=== PATIENT | female | born 1960 | race Caucasian/White ===

== ENCOUNTER 2019-07-23 16:22 | Emergency (ER) | payer OTHER, SELFPAY ==
[2019-07-23 16:22] VITALS: BP 153/107; PULSE 88; RESP 19; TEMP 37.1; O2SAT 96; BMI 26.6
--- NOTE | 2019-07-23 16:39 | HMH.EDUTC ---
[facility] [place] Clinical Impression: Folliculitis Disposition: Home, Self-Care Condition on Discharge: Good Instructions: Folliculitis, DI for Folliculitis Additional Instructions: Keep the area clean and dry. Follow up with your regular doctor. Take the antibiotics as directed. Don't start the oral steroids until tomorrow, since you had the shot here today. GO TO THE ER FOR ANY WORSENING SYMPTOMS Prescriptions: Sulfamethoxazole/Trimethoprim [Bactrim DS tablet] 1 each PO BID 10 Days #20 tab Transmission Status: Received by [facility]/pharmacy #[id number] Mupirocin [Bactroban 2% Ointment 22gm tube] 1 applicatio TP TID 7 Days #1 tube Transmission Status: Received by [facility]/pharmacy #[id number] cephALEXin [Keflex 500mg Cap] 500 mg PO Q6H 10 Days #40 cap Transmission Status: Received by [facility]/pharmacy #[id number] methylPREDNISolone [Medrol] 4 mg PO DIRECTED 6 Days #21 tab.ds.pk Transmission Status: Received by [facility]/pharmacy #[id number] Referrals: Provider,Referral, [Primary Care Provider] - Time of Disposition: 16:42 Medical Decision Making - Medical Records Medical records reviewed: No: I reviewed the patient's medical records. - Elmo Inquiry Pt receiving controlled substance: No Vital Signs: 07/23/19 16:22 07/23/19 16:50 Temperature 98.7 F 98.7 F Temperature Source Oral Oral Pulse Rate 88 Pulse Rate [Radial] 88 Respiratory Rate 19 19 Blood Pressure 148/98 H Blood Pressure [Right Arm] 153/107 H Blood Pressure Mean [Right Arm] 122 Blood Pressure Source Automatic Cuff Blood Pressure Source [Right Arm] Automatic Cuff Blood Pressure Position Sitting Blood Pressure Position [Right Arm] Sitting 02 Sat by Pulse Oximetry 96 Oxygen Delivery Method Room Air Room Air Orders (Tests/Meds): ED MEDICATIONS Discontinued Medications Generic Name Dose Route Start Last Admin Trade Name Freq PRN Reason Stop Dose Admin Ceftriaxone Sodium 1 gm 07/23/19 16:39 07/23/19 16:43 Rocephin 1gm Vial IM 07/23/19 16:40 1 gm ONCE ONE Administration Protocol Lidocaine HCl 0 ml 07/23/19 16:39 07/23/19 16:43 Lidocaine 1% 10ml Mdv IM 07/23/19 16:40 2.1 ml ONCE ONE Administration Methylprednisolone Sodium Succinate 125 mg 07/23/19 16:39 07/23/19 16:43 Solu-Medrol 125mg/2ml Vial IM 07/23/19 16:40 125 mg ONCE ONE Administration [facility] [place] - General Stated complaint: possible staph infection Time Seen by Provider: 07/23/19 16:39 Mode of Arrival: Ambulatory Source of Information: Patient Limitations: No Limitations Description of Symptoms (Recalled from Triage Doc. by RN): possible staph infection on belly and top of legs. HEENT Symptoms (Recalled from RN notes): No Resp Symptoms (Recalled from RN notes): No Skin Symptoms (Recalled from RN notes): Yes MS Symptoms (Recalled from RN notes): No Functional Status (Recalled from RN notes): wnl - History of Present Illness Provider Complaint: She c/o itching and redness of her abdomen and upper legs. In the past she had similar symptoms and she was treated for a staph infection and it got better. She denies any fever or chills. - Related Data Previous Rx's Medication Instructions Recorded Mupirocin [Bactroban 2% Ointment 1 applicatio TP TID 7 Days #1 tube 07/23/19 22gm tube] Sulfamethoxazole/Trimethoprim 1 each PO BID 10 Days #20 tab 07/23/19 [Bactrim DS tablet] cephALEXin [Keflex 500mg Cap] 500 mg PO Q6H 10 Days #40 cap 07/23/19 methylPREDNISolone [Medrol] 4 mg PO DIRECTED 6 Days #21 07/23/19 tab.ds.pk Allergies Allergy/AdvReac Type Severity Reaction Status Date / Time No Known Allergies Allergy Verified 05/25/18 16:08 - Worker's Comp Is this a Worker's Comp case?: No [facility] History - Hepatitis A Screen Drug use history?: No High risk sexual behaviors?: No History of sexually transmitted infection?: No Currently employed?: No Childcare worker?: No Do you have indoor plumbing?: Yes Do
[2019-07-23 16:50] VITALS: BP 148/98; PULSE 88; RESP 19; TEMP 37.1; O2SAT 96
== END 2019-07-23 16:51 | disposition home or self-care (01) ==
PROVIDERS: Emergency Provider Nurse Practitioner Family
DX: L73.9 Follicular disorder, unspecified (principal); F17.210 Nicotine dependence, cigarettes, uncomplicated
CPT/HCPCS: 96372; 99201

== ENCOUNTER 2019-08-11 13:02 | Emergency (ER) | payer OTHER, SELFPAY ==
[2019-08-11 13:19] VITALS: BP 150/101; PULSE 67; RESP 21; TEMP 36.1; O2SAT 99; BMI 26.8
--- NOTE | 2019-08-11 13:31 | HMH.EDUTC ---
[facility] – [place] Clinical Impression: Vomiting Qualifiers: Vomiting type: unspecified Vomiting Intractability: non-intractable Nausea presence: with nausea Qualified Code(s): R11.2 - Nausea with vomiting, unspecified Diarrhea Qualifiers: Diarrhea type: unspecified type Qualified Code(s): R19.7 - Diarrhea, unspecified Disposition: Home, Self-Care Condition on Discharge: Good Instructions: Peptic Ulcer, DI for Peptic Ulcer Additional Instructions: Drink plenty of fluids. Take tylenol for pain or fever. Take the zofran for nausea/vomiting. Take the medications as directed. Follow up with your regular doctor. GO TO THE ER FOR ANY WORSENING SYMPTOMS Follow up with the GI doctor (Dr. Lepe). I put in a referral, but you need to call his office and schedule an appointment. Avoid taking the goody powders, BC powders or other NSAIDS until you are seen by Dr. Lepe. Prescriptions: Ondansetron [Zofran 4mg ODT] 4 mg PO Q8HP PRN #20 tab.rapdis PRN Reason: Nausea Transmission Status: Received by [facility]/pharmacy #[id number] Omeprazole [Omeprazole 20mg Capsule] 20 mg PO DAILY 30 Days #30 cap Transmission Status: Received by [facility]/pharmacy #[id number] Referrals: Carmen Mandel PA [Primary Care Provider] - Shant Lepe MD [Staff Physician] - Forms: Work/School Release Time of Disposition: 15:05 Medical Decision Making - Medical Records Medical records reviewed: Yes: I reviewed the patient's medical records. - Elmo Inquiry Pt receiving controlled substance: No Vital Signs: 08/11/19 13:19 08/11/19 15:07 Temperature 97 F L 97.0 F L Temperature Source Oral Pulse Rate 67 Pulse Rate [Right Brachial] 67 Respiratory Rate 21 21 Blood Pressure 150/85 H Blood Pressure [Left Arm] 150/101 H Blood Pressure Mean [Left Arm] 117 Blood Pressure Source [Left Arm] Automatic Cuff Blood Pressure Position [Left Arm] Sitting 02 Sat by Pulse Oximetry 99 Oxygen Delivery Method Room Air - Lab Data Lab results reviewed: Yes: I reviewed the patient's lab results. Lab Results 08/11/19 13:50: WBC 6.9, RBC 4.86, Hgb 15.8, Hct 47.7 H, MCV 98.1, MCH 32.5 H, MCHC 33.1, RDW 12.9, Plt Count 260, MPV 8.3, Neut % (Auto) 63.2, Lymph % (Auto) 31.3, [place] % (Auto) 3.8, Eos % (Auto) 1.1, Baso % (Auto) 0.6, Neut # (Auto) 4.4, Lymph # (Auto) 2.2, [place] # (Auto) 0.3, Eos # (Auto) 0.1, Baso # (Auto) 0.0 08/11/19 13:50: PT 10.0, INR 0.97, APTT 22.5 L 08/11/19 13:50: Sodium 140, Potassium 4.1, Chloride 105, Carbon Dioxide 31 H, Anion Gap 8.1, BUN 10, Creatinine 0.60, Estimated Creat Clear 121, Estimated GFR 103, Est GFR ( Amer) 124, Glucose 105 H, Calcium 9.4, Total Bilirubin 0.8, AST 28, ALT 15, Alkaline Phosphatase 80, Total Protein 7.0, Albumin 4.3, Globulin 2.7, Albumin/Globulin Ratio 1.6, Amylase 76, Lipase 51 Result diagrams: 08/11/19 13:50 08/11/19 13:50 [facility] [place] - General Stated complaint: vomiting,diarrhea Time Seen by Provider: 08/11/19 13:32 Mode of Arrival: Ambulatory Source of Information: Patient Limitations: No Limitations Description of Symptoms (Recalled from Triage Doc. by RN): PATIENT C/O VOMITING, DIARRHEA, AND CHILLS SINCE SUNDAY AFTERNOON. NO KNOWN SICK CONTACTS HEENT Symptoms (Recalled from RN notes): No Resp Symptoms (Recalled from RN notes): No Skin Symptoms (Recalled from RN notes): No MS Symptoms (Recalled from RN notes): No Functional Status (Recalled from RN notes): WNL - History of Present Illness Provider Complaint: She c/o n/v/d for the past 2 days. She states that her stool has been maroon colored at times. She has a history of having an ulcer that has bled in the past. - Related Data Previous Rx's Medication Instructions Recorded Omeprazole [Omeprazole 20mg 20 mg PO DAILY 30 Days #30 cap 06/29/20 Capsule] Ondansetron [Zofran 4mg ODT] 4 mg PO Q8HP PRN #20 tab.rapdis 08/11/19 Allergies Allergy/AdvReac Type Severity Reaction Status Scot
[2019-08-11 14:15] LABS: Chloride 105 mmol/L (98-107); Potassium 4.1 mmoL/L (3.5-5.1); Sodium 140 mmol/L (136-145)
[2019-08-11 14:17] LABS: Alanine Aminotransferase 15 U/L (12-78); Amylase 76 U/L (30-110); Aspartate Amino Transferase 28 U/L (14-36); Blood Urea Nitrogen 10 mg/dl (7-17); Creatinine Clearance Estimated 121 mL/min (50-200); Estimated Glomerular Filt Rate 103 ml/min (>60); GFR (African American) 124 ML/MIN (>60)
[2019-08-11 14:18] LABS: Albumin Level 4.3 g/dl (3.5-5.0); Albumin/Globulin Ratio 1.6 (1.1-1.8); Alkaline Phosphatase 80 U/L (38-126); Anion Gap 8.1 mEq/L (5-15); Bilirubin,Total 0.8 mg/dl (0.2-1.3); Calcium 9.4 mg/dl (8.4-10.2); Carbon Dioxide 31 mmol/L (22.0-30.0); Globulin 2.7 g/dL (1.3-3.2); Glucose 105 mg/dl (74-100); Lipase 51 U/L (23-300)
[2019-08-11 14:55] LABS: Basophils % 0.6 % (0.1-2.0); Eosinophils # 0.1 K/mm3 (0.0-0.4); Eosinophils % 1.1 % (0.1-12.0); Hematocrit 47.7 % (37.0-47.0); Hemoglobin 15.8 g/dL (12.2-16.2); Lymphocytes # 2.2 K/mm3 (0.7-4.5); Lymphocytes % 31.3 % (10-50); Mean Corpuscular HGB Conc 33.1 g/dL (31.8-35.4); Mean Corpuscular Hemoglobin 32.5 pg (27.0-31.2); Mean Corpuscular Volume 98.1 fl (81-99); Mean Platelet Volume 8.3 fl (7.4-10.4); Monocytes # 0.3 K/mm3 (0.1-1.0); Monocytes % 3.8 % (1.7-9.3); Neutrophils # 4.4 K/mm3 (1.8-7.8); Neutrophils % 63.2 % (37.0-80.0); Platelet Count 260 K/mm3 (142-424); Red Blood Count 4.86 M/mm3 (4.20-5.40); Red Cell Distribution Width 12.9 % (11.5-17.5); White Blood Count 6.9 K/mm3 (4.8-10.8)
[2019-08-11 15:00] LABS: Activated Partial Thrombo Time 22.5 seconds (23.6-34.0); INR 0.97 (0.9-1.1)
[2019-08-11 15:07] VITALS: BP 150/85; PULSE 67; RESP 21; TEMP 36.1; O2SAT 99
== END 2019-08-11 15:16 | disposition home or self-care (01) ==
PROVIDERS: Emergency Provider Nurse Practitioner Family; PCP Physician Assistant
DX: R11.2 Nausea with vomiting, unspecified (principal); R19.7 Diarrhea, unspecified; F17.210 Nicotine dependence, cigarettes, uncomplicated; Z90.09 Acquired absence of other part of head and neck
CPT/HCPCS: 80053; 82150; 83690; 85025; 85610; 85730; 99201

== ENCOUNTER → 2019-09-16 09:09 | Outpatient (CLI) | payer OTHER, SELFPAY ==
--- NOTE | 2019-09-16 09:10 | MM_ITS ---
PROCEDURE: MM DIG SCREENING MAMM BI W/CAD Digital Breast Tomosynthesis Included CLINICAL INDICATION: screening There is a history of breast cancer patient's mother. Patient has had previous mammograms but is not sure where they were performed COMPARISON: No exams were available for comparison TECHNIQUE: Standard CC and MLO images and 3D Tomosynthesis was obtained. R2 CAD reviewed. FINDINGS: The breasts are composed primarily of fat with minimal scattered fibroglandular densities in each breast. There is a tiny benign-appearing nodular density upper-outer quadrant right breast likely a microcyst. There is a benign-appearing microcalcification left breast. There is no suspicious lesion and no suspicious microcalcifications. IMPRESSION: Fatty type breast parenchyma with no suspicious lesions seen BI-RAD Category: 2 Benign Finding(s) FOLLOW-UP: 1YR 1 Year Follow-up (A letter has been sent to the patient regarding results of the study.) Dictated Dr. Chapito Valdivia MD 09/19/2019 11:56 Dr. Chapito Fermin MD in [place] 09/19/2019 11:56
--- NOTE | 2019-09-16 09:10 | XR_ITS ---
PROCEDURE: XR LUMBAR SPINE MIN 4V CLINICAL INDICATION: LBP COMPARISON: No exams were available for comparison FINDINGS: Mild levoscoliosis. There are facet arthritic changes at L5-S1. There is mild degenerative disc disease at T12-L1 and L1-L2 as well as L2-L3. Degenerative disc disease is present at L5-S1 with nearly 1 cm anterolisthesis of L5 on S1. Other findings:None. IMPRESSION: Lumbar spondylosis with degenerative disc disease and facet arthritic change. Grade 1-2 spondylolisthesis L5 on S1. Dictated b Edd Nagel MD 09/16/2019 15:19 Edd Nagel MD in [place] 09/16/2019 15:19
== END ==
PROVIDERS: PCP Physician Assistant; Visit Provider Physician Assistant
DX: Z12.31 Encounter for screening mammogram for malignant neoplasm of breast (principal); Z12.11 Encounter for screening for malignant neoplasm of colon; M54.5 Low back pain
CPT/HCPCS: 72110; 77063; 77067

== ENCOUNTER → 2019-10-02 07:43 | Outpatient (CLI) | payer OTHER, SELFPAY ==
--- NOTE | 2019-10-02 07:43 | MR_ITS ---
PROCEDURE: MR LUMBAR SPINE WO CON CLINICAL INDICATION: abn xray Severe low back pain, bilateral sciatica x25-30 years. Prior xray 09-16-19 COMPARISON: CR XR LUMBAR SPINE MIN 4V from 09/16/2019 TECHNIQUE: Standard multiplanar multiecho sequences are performed without contrast. 3-D MIP and myelographic images are also rendered and reviewed FINDINGS: The spinal cord ends at the T12 level. There is mild degree of motion artifact on the images which somewhat obscures fine detail. T11-T12: There is a small right paracentral disc herniation causing minimal impingement and flattening of the anterior right aspect of the spinal cord. There is degenerative disc disease at this level. T12-L1: Degenerative disc disease with bulging disc slightly eccentric toward the right versus a small broad-based disc protrusion with facet and ligamentum hypertrophy. There is mild right lateral recess and foraminal narrowing. There is 4 mm retrolisthesis of T12 on L1 L1-L2: Degenerate disc disease with bulging disc along with facet ligamentum hypertrophy. There is a small left paracentral disc protrusion. There is mild bilateral lateral recess and foraminal narrowing with facet and ligamentum hypertrophy. L2-L3: Mild degenerative disc disease with bulging disc with facet and ligamentum hypertrophy with mild bilateral foraminal narrowing. L3-L4: There is bulging disc which is eccentric toward the left along with facet ligamentum hypertrophy. There is bilateral lateral recess and foraminal narrowing which is slightly greater on the left L4-5: Mild concentric bulging disc along with facet and ligamentum hypertrophy with mild bilateral foraminal narrowing L5-S1: 13 mm anterolisthesis of L5 with degenerative disc disease at that level. The spondylolisthesis appears to be spondylitic in nature. There is resultant severe bilateral foraminal narrowing from the spondylolisthesis. No extruded herniated disc are evident. There is mild lumbar scoliosis convex left . IMPRESSION: Abnormal MRI of the lumbar spine with multilevel lumbar spondylosis with degenerative disc disease, bulging disc, facet ligamentum hypertrophy with multilevel areas of lateral recess and foraminal narrowing. There is a right paracentral disc herniation at T11-T12 and there is grade 2 spondylolisthesis of L5 on S1 which appears spondylitic. Please see above for detailed description at each level. Dictated by: Edd Nagel MD 10/03/2019 12:55 Edd Nagel MD in [place] 10/03/2019 12:55
== END ==
PROVIDERS: PCP Physician Assistant; Visit Provider Physician Assistant
DX: M51.36 Other intervertebral disc degeneration, lumbar region (principal)
CPT/HCPCS: 72148; 76376

== ENCOUNTER → 2019-11-25 09:43 | Outpatient (CLI) | payer OTHER, SELFPAY ==
[2019-11-25 12:25] LABS: Coronavirus 19 IgG Antibody Positive (Negative); Coronavirus 19 IgM Antibody Negative (Negative)
== END ==
PROVIDERS: Visit Provider Surgery
DX: Z01.84 Encounter for antibody response examination (principal); U07.1 COVID-19
CPT/HCPCS: 36415; 86328

== ENCOUNTER 2019-11-27 06:13 | Day surgery (SDC) | payer OTHER, SELFPAY ==
[2019-11-25 13:08] VITALS: BMI 25.8
[2019-11-27 06:37] VITALS: BP 102/69; PULSE 78; RESP 18; TEMP 36.3; O2SAT 97
--- NOTE | 2019-11-27 07:33 | HMH.ANESCL ---
[facility] Anesthesia Checklist - Patient Identification Patient Identification: Arm Band, Verbal (Name & ) - Structural Data Admitted From: Home Planned Operative Procedure/s: colon Consent for Planned Operative Procedure(s) Verified: Yes Verified Documents: History and Physical - NPO Status Verified Time NPO: 00:00 - Chart Verification Results Verified: CBC, BMP - Additional verifications Patient : No Anesthesia Reactions: No Hx Blood Transfusions: No Blood Transfusion Reaction: No Cephalosporin Allergy: No Previous Colonoscopy: Yes - Cardiovascular Assessment Heart Sounds: S1 & S2 Pulse Strength: Baseline Pulse Rhythm: Regular Peripheral Edema: No - Airway Assessment C-Spine Mobility Assessed: Yes TMJ Mobility Assessed: Yes Dentition: Good Dentition - Neurological Assessment Level of Consciousness: Awake, Alert, Appropriate Hx Seizures: No Numbness or tingling in extremities: No - Anesthesia Plan Anesthesia Risk discussed: Yes Anesthesia Plan: Verified ASA Class: III Anesthesia Type: MAC [facility] History I have reviewed the patient's past medical history: Yes Medical History: Reports:: Cancer (cervical), Congestive Heart Failure, Gastroesophageal Reflux Disease(GERD), Hyperlipidemia Denies:: Diabetes Mellitus Type 1, Diabetes Mellitus Type 2, Internal Pacemaker, MRSA, Seizures *Have you ever received a pneumonia vaccine?: No *Have you received a flu vaccine this season?: No Anesthesia experience/problems:: none Laterality Cases: Bilateral: Tonsillectomy Other Surgeries: Yes: Coronary Stent (2016), , Hysterectomy-Total, Other. No: Pacemaker Amputation: No Fractures: No - *Social History Last grade of school completed: 9th or 10th Smoking Status: Current every day smoker Tobacco Type: cigarettes # Packs/Day (cigarettes): 1 Alcohol Intake: current Alcohol Intake Frequency:: holidays/special occasions only Substance Use Type: denies use *Occupational Status:: employed Housing: house Household Members: significant other *Travel in the last 8 weeks: None Family Hx:: Cancer, Heart Attack
[2019-11-27 07:39] VITALS: O2SAT 97
--- NOTE | 2019-11-27 08:21 | P.PCN_ITS ---
- Procedure: Date: 11/27/19 Patient Date of :: 1960 Procedure Performed:: Colonoscopy with polypectomy Indications:: Screening Performing Provider:: Chip Sow MD Referring Provider:: . Sedation:: Monitored anesthesia care Procedure:: After informed consent was obtained the patient was taken to the endoscopy suite. Sedation ensued after the patient was transferred to the left lateral decubitus position. Pulse, blood pressure, and oxygen saturation were monitored throughout the procedure. Digital rectal exam revealed no significant ab normality. The colonoscope was placed in position. The entire colon was evaluated. The colonoscope was carefully removed and the patient was transferred to recovery in stable condition. Please see findings and specimens below for detail. Findings:: Bowel preparation moderate to poor Pandiverticulosis Fairly significant spasticity/lack of relaxation Hemorrhoidal cushions Complex lobulated pedunculated polyp at 20 cm Specimens:: Complex lobulated pedunculated polyp at 20 cm (snare) Recommendations:: Timing of repeat colonoscopy is pending pathology but will likely be around 1 year secondary to limited bowel preparation, spasticity/lack of relaxation, and size/nature of polyp. Complications:: No immediate Estimated blood obtained (mL): 1
[2019-11-27 08:24] VITALS: BP 103/92; PULSE 72; RESP 16; TEMP 36.4; O2SAT 98
[2019-11-27 08:34] VITALS: BP 111/83; PULSE 78; RESP 16; O2SAT 98
[2019-11-27 08:44] VITALS: BP 130/87; PULSE 76; RESP 16; O2SAT 98
[2019-11-27 08:54] VITALS: BP 123/82; PULSE 68; RESP 16; O2SAT 99
== END 2019-11-27 08:54 | disposition home or self-care (01) ==
LOC: OUTP 06:15
PROVIDERS: PCP Physician Assistant; Visit Provider Surgery
PROC: 0DJD8ZZ Inspection of Lower Intestinal Tract, Via Natural or Artificial Opening Endoscopic (ICD-10-PCS; CPT 45385; principal; 2019-11-27 07:30)
DX: Z12.11 Encounter for screening for malignant neoplasm of colon (principal); K57.30 Diverticulosis of large intestine without perforation or abscess without bleeding; K64.0 First degree hemorrhoids; K63.5 Polyp of colon; K56.2 Volvulus; Z85.41 Personal history of malignant neoplasm of cervix uteri; I50.9 Heart failure, unspecified; K21.9 Gastro-esophageal reflux disease without esophagitis; E78.5 Hyperlipidemia, unspecified; Z90.89 Acquired absence of other organs; Z79.899 Other long term (current) drug therapy
CPT/HCPCS: 45385

== ENCOUNTER → 2020-07-26 14:16 | Outpatient (CLI) | payer BC, SELFPAY ==
[2020-07-26 15:10] LABS: Barbiturates Screen,Urine Negative ng/ml (<200)
[2020-07-26 15:11] LABS: Benzodiazepines Screen,Urine Negative ng/ml (<200)
[2020-07-26 15:12] LABS: Amphetamine/Metha Screen,Urine Negative ng/ml (<1000); Methadone Screen,Urine Negative ng/ml (<300)
[2020-07-26 15:13] LABS: Cannabinoid Screen,Urine Positive ng/ml (<50)
[2020-07-26 15:14] LABS: Cocaine Screen,Urine Negative ng/ml (<300); Opiate Screen,Urine Negative ng/ml (<300)
[2020-07-26 15:15] LABS: Phencyclidine Screen,Urine Negative ng/ml (<25)
== END ==
PROVIDERS: Visit Provider Physician Assistant
DX: Z79.899 Other long term (current) drug therapy (principal)
CPT/HCPCS: 80305

== ENCOUNTER → 2020-11-18 15:58 | Outpatient (CLI) | payer BC, SELFPAY ==
--- NOTE | 2020-11-18 15:58 | MM_ITS ---
PROCEDURE: MM DIG SCREENING MAMM BI W/CAD Digital Breast Tomosynthesis Included CLINICAL INDICATION: Breast cancer screening There is a history of breast cancer in the patient's mother and paternal grandmother. COMPARISON: MG MM DIG SCREENING MAMM BI W/CAD from 09/16/2019 TECHNIQUE: Standard CC and MLO images and 3D Tomosynthesis was obtained. R2 CAD reviewed. FINDINGS: Breasts are composed primarily of fat with minimal scattered fibroglandular densities throughout each breast. There is a mole marker right breast. There is faint arterial calcification in each breast. There is no suspicious lesion and no suspicious microcalcifications. IMPRESSION: Fatty type breast parenchyma with no suspicious lesions seen BI-RAD Category: 2 Benign Finding(s) FOLLOW-UP: 1YR 1 Year Follow-up (A letter has been sent to the patient regarding results of the study.) Dictated by: Dr. Chapito Fermin MD 12/10/2020 08:13 Dr. Chapito Fermin MD in [place] 12/10/2020 08:13
== END ==
PROVIDERS: PCP Physician Assistant; Visit Provider Physician Assistant
DX: Z12.31 Encounter for screening mammogram for malignant neoplasm of breast (principal)
CPT/HCPCS: 77063; 77067

== ENCOUNTER 2020-11-24 12:34 | Emergency (ER) | payer BC, SELFPAY ==
[2020-11-24 12:40] VITALS: BP 134/110; PULSE 79; RESP 16; TEMP 36.6; O2SAT 99; BMI 25.8
[2020-11-24 12:50] VITALS: BP 134/110; PULSE 79; RESP 19; TEMP 36.5
--- NOTE | 2020-11-24 13:13 | HMH.EDUTC ---
[facility] Disposition Clinical Impression: Left otitis media with effusion Disposition: Home, Self-Care Condition on Discharge: Good Instructions: Middle Ear Infection Additional Instructions: Drink plenty of fluids. Take tylenol or ibuprofen for pain or fever. Take the medications as directed. Follow up with your regular doctor. If this does not resolve you might end up needing to see an ENT doctor. Your primary care provider would be the one to make that referral. GO TO THE ER FOR ANY WORSENING SYMPTOMS Prescriptions: Amoxicillin [Amoxicillin 500mg Tab] 500 mg PO TID 10 Days #30 tab Transmission Status: Received by [facility]/pharmacy #[id number] methylPREDNISolone [Medrol] 4 mg PO DIRECTED 6 Days #21 packet Transmission Status: Received by [facility]/pharmacy #[id number] Cetirizine HCl [Zyrtec] 10 mg PO DAILY 30 Days #30 cap Transmission Status: Received by [facility]/pharmacy #[id number] Referrals: Carmen Mandel PA [Primary Care Provider] - Time of Disposition: 13:30 Medical Decision Making - Medical Records Medical records reviewed: No: I reviewed the patient's medical records. - Elmo Inquiry Pt receiving controlled substance: No Vital Signs: 11/24/20 12:40 11/24/20 12:50 Temperature 97.8 F 97.7 F Temperature Source Oral Pulse Rate 79 Pulse Rate [Left] 79 Respiratory Rate 16 19 Blood Pressure 134/110 H Blood Pressure [Right Arm] 134/110 H Blood Pressure Mean [Right Arm] 118 02 Sat by Pulse Oximetry 99 [facility] HPI - General Stated complaint: dizzy, left ear pain Time Seen by Provider: 11/24/20 13:13 Mode of Arrival: Ambulatory Source of Information: Patient Limitations: No Limitations Description of Symptoms (Recalled from Triage Doc. by RN): pt c/o of L ear ache that is causing dizziness and L neck pain. pt states sweat oil is not working. HEENT Symptoms (Recalled from RN notes): Yes (L ear ache) Resp Symptoms (Recalled from RN notes): No Skin Symptoms (Recalled from RN notes): No MS Symptoms (Recalled from RN notes): No Functional Status (Recalled from RN notes): na - History of Present Illness Provider Complaint: She c/o left ear pain for the past 3 days. She has began to feel dizzy after turning her head to the left if she doesn't go slowly. She believes that she has an ear infection. - Related Data Previous Rx's Medication Instructions Recorded fluorouracil 5 % topical cream 1 applic TOPICAL BID 28 Days #40 g 07/26/20 permethrin 5 % topical cream See Rx Instructions .ROUTE 10/12/20 .COMPLEX #60 g cyclobenzaprine 10 mg tablet See Rx Instructions .ROUTE 10/28/20 .COMPLEX #90 tab gabapentin 300 mg capsule 300 mg PO BID #60 cap 10/28/20 cetirizine 10 mg tablet See Rx Instructions .ROUTE 11/19/20 .COMPLEX #30 tab Amoxicillin [Amoxicillin 500mg Tab] 500 mg PO TID 10 Days #30 tab 11/24/20 Cetirizine HCl [Zyrtec] 10 mg PO DAILY 30 Days #30 cap 11/24/20 methylPREDNISolone [Medrol] 4 mg PO DIRECTED 6 Days #21 11/24/20 packet Allergies Allergy/AdvReac Type Severity Reaction Status Date / Time No Known Allergies Allergy Verified 10/28/20 09:35 - Worker's Comp Is this a Worker's Comp case?: No [facility] History - Hepatitis A Screen Drug use history?: No High risk sexual behaviors?: No History of sexually transmitted infection?: No Currently employed?: No Childcare worker?: No Do you have indoor plumbing?: Yes Do you have electricity?: Yes Attestation statement:: This patient has been screened for Hepatitis A risk factors. I have reviewed the patient's past medical history: Yes Medical History: Reports:: Cancer, Congestive Heart Failure, Gastroesophageal Reflux Disease(GERD), Hyperlipidemia Denies:: Diabetes Mellitus Type 1, Diabetes Mellitus Type 2, Internal Pacemaker, MRSA, Seizures Other Medical History: Denies: Blood Transfusion Reaction Comment: ddd Laterality Cases: Bilateral: Tonsillectomy Other Surgeries: Yes: Cancer Surgery, Colonoscopy, Coronary Stent, C-secti
== END 2020-11-24 13:32 | disposition home or self-care (01) ==
PROVIDERS: Emergency Provider Nurse Practitioner Family; PCP Physician Assistant
DX: H65.92 Unspecified nonsuppurative otitis media, left ear (principal); E78.5 Hyperlipidemia, unspecified; K21.9 Gastro-esophageal reflux disease without esophagitis; F17.210 Nicotine dependence, cigarettes, uncomplicated
CPT/HCPCS: 99202; G0463

== ENCOUNTER → 2021-01-08 18:16 | Outpatient (CLI) | payer BC, SELFPAY ==
--- NOTE | 2021-01-11 14:36 | PC.NURSE ---
pt. contacted regarding positive covid test result.
== END ==
PROVIDERS: PCP Physician Assistant; Visit Provider Nurse Practitioner
DX: U07.1 COVID-19 (principal)
CPT/HCPCS: C9803; U0003; U0005

== ENCOUNTER 2021-02-22 09:35 | Emergency (ER) | payer BC, SELFPAY ==
[2021-02-22 11:03] VITALS: BP 165/109; PULSE 88; RESP 18; TEMP 36.9; O2SAT 96; BMI 26.8
--- NOTE | 2021-02-22 11:16 | HMH.EDUTC ---
[facility] [place] Disposition Clinical Impression: Sinusitis Qualifiers: Sinusitis location: unspecified location Chronicity: unspecified Qualified Code(s): J32.9 - Chronic sinusitis, unspecified Disposition: Home, Self-Care Condition on Discharge: Good Instructions: Sinusitis, DI for Sinusitis, Amoxicillin and Clavulanic Acid Additional Instructions: *Monitor Temp, Over the counter Motrin or Tylenol as directed/as needed Tylenol every 4 hours and Motrin every 6 hours (as long as your family doctor has told you that you can take it) for fever or pain. and straight to ER if unable to lower temp less than 101.0 after medication given *Warm salt water gargles may help to soothe the throat *Throat Lozenges *Warm fluids like tea with honey may help to soothe the throat *Sleep elevated *Humidifier/Vaporizer Take medication as prescribed Return if needed Follow up IMMEDIATELY for new or worsening symptoms or no Noticeable improvement over the next 48-72 hours. 911 for difficulty breathing or swallowing Prescriptions: Amoxicillin/Potassium Clav [Augmentin 875-125 Tablet] 1 tab PO Q12H 10 Days #20 tab Transmission Status: Pending to [id number] methylPREDNISolone [Medrol 4mg tab] 4 mg PO DIRECTED #21 tab Transmission Status: Pending to [id number] Referrals: Carmen Mandel PA [Primary Care Provider] - Time of Disposition: 11:30 Medical Decision Making - Elmo Inquiry Pt receiving controlled substance: No Elmo was queried for this patient: No Vital Signs: 02/22/21 11:03 Temperature 98.4 F Temperature Source Oral Pulse Rate [Left Radial] 88 Respiratory Rate 18 Blood Pressure [Left Arm] 165/109 H Blood Pressure Mean [Left Arm] 127 Blood Pressure Source [Left Arm] Automatic Cuff Blood Pressure Position [Left Arm] Sitting 02 Sat by Pulse Oximetry 96 Oxygen Delivery Method Room Air [facility] [place] HPI - General Stated complaint: diarrhea, runny nose, congestion Time Seen by Provider: 02/22/21 11:16 Mode of Arrival: Ambulatory Source of Information: Patient Limitations: No Limitations Description of Symptoms (Recalled from Triage Doc. by RN): C/O sinus pressure, chest congestion x3 days HEENT Symptoms (Recalled from RN notes): Yes (sinus pressure) Resp Symptoms (Recalled from RN notes): Yes (chest congestion) Skin Symptoms (Recalled from RN notes): No MS Symptoms (Recalled from RN notes): No Functional Status (Recalled from RN notes): n/a - History of Present Illness Provider Complaint: Patient state that she has sinus issues State that she has been having sinus pain and pressure on and off for over a week but for the last 3 days it has continued to get worse and she has been having pressure behind her eyes in and in her ears State that feels like it is draining in the back of her throat and feels like it is trying to move into her chest - Related Data Previous Rx's Medication Instructions Recorded permethrin 5 % topical cream See Rx Instructions .ROUTE 10/12/20 .COMPLEX #60 g cyclobenzaprine 10 mg tablet See Rx Instructions .ROUTE 10/28/20 .COMPLEX #90 tab Cetirizine HCl [Zyrtec] 10 mg PO DAILY 30 Days #30 cap 11/24/20 cefdinir 300 mg capsule 300 mg PO Q12H 10 Days #20 cap 12/09/20 fluticasone propionate 50 1 spray INTRANASAL BID 14 Days 12/09/20 mcg/actuation nasal #9.9 g spray,suspension gabapentin 300 mg capsule 300 mg PO BID #60 cap 12/09/20 meclizine 25 mg tablet 25 mg PO TID PRN #30 tab 12/09/20 prednisone 20 mg tablet 20 mg PO BID #10 tab 12/09/20 azithromycin 500 mg tablet 500 mg PO DAILY 3 Days #3 tab 01/18/21 methylprednisolone 4 mg tablets in See Rx Instructions PO PER PKG DIR 01/18/21 a dose pack #21 tab Amoxicillin/Potassium Clav 1 tab PO Q12H 10 Days #20 tab 02/22/21 [Augmentin 875-125 Tablet] methylPREDNISolone [Medrol 4mg 4 mg PO DIRECTED #21 tab 02/22/21 tab] Allergies Allergy/AdvReac Type Severity Reaction Status Date / Time No Known Allergies All
[2021-02-22 11:36] VITALS: BP 165/109; PULSE 88; RESP 18; TEMP 36.9; O2SAT 96
== END 2021-02-22 11:37 | disposition home or self-care (01) ==
PROVIDERS: Emergency Provider Nurse Practitioner; PCP Physician Assistant
DX: J32.9 Chronic sinusitis, unspecified (principal); I50.9 Heart failure, unspecified; K21.9 Gastro-esophageal reflux disease without esophagitis; E78.5 Hyperlipidemia, unspecified; Z85.9 Personal history of malignant neoplasm, unspecified; F17.210 Nicotine dependence, cigarettes, uncomplicated
CPT/HCPCS: 99202; G0463

== ENCOUNTER → 2021-08-01 16:35 | Outpatient (CLI) | payer BC, SELFPAY ==
[2021-08-01 13:54] LABS: Basophils # 0.2 K/mm3 (0-0.2); Basophils % 2.7 % (0.1-2.0); Eosinophils # 0.2 K/mm3 (0.0-0.4); Eosinophils % 2.1 % (0.1-12.0); Hematocrit 52.6 % (37.0-47.0); Lymphocytes # 2.1 K/mm3 (0.7-4.5); Lymphocytes % 29.8 % (10-50); Mean Corpuscular HGB Conc 32.3 g/dL (31.8-35.4); Mean Corpuscular Hemoglobin 33.7 pg (27.0-31.2); Mean Corpuscular Volume 104.3 fl (81-99); Mean Platelet Volume 8.7 fl (7.4-10.4); Monocytes # 0.3 K/mm3 (0.1-1.0); Monocytes % 4.3 % (1.7-9.3); Neutrophils # 4.4 K/mm3 (1.8-7.8); Neutrophils % 61.2 % (37.0-80.0); Platelet Count 277 K/mm3 (142-424); Red Blood Count 5.04 M/mm3 (4.20-5.40); White Blood Count 7.2 K/mm3 (4.8-10.8)
[2021-08-01 14:12] LABS: Chloride 105 mmol/L (98-107); Potassium 4.1 mmoL/L (3.5-5.1); Sodium 141 mmol/L (136-145)
[2021-08-01 14:14] LABS: Alanine Aminotransferase 17 U/L (12-78); Aspartate Amino Transferase 26 U/L (14-36); Blood Urea Nitrogen 13 mg/dl (7-17); Estimated Glomerular Filt Rate 126 ml/min (>60); GFR (African American) 152 ML/MIN (>60)
[2021-08-01 14:15] LABS: Albumin Level 4.2 g/dl (3.5-5.0); Albumin/Globulin Ratio 1.6 (1.1-1.8); Alkaline Phosphatase 90 U/L (38-126); Anion Gap 9.1 mEq/L (5-15); Bilirubin,Total 0.5 mg/dl (0.2-1.3); Calcium 9.5 mg/dl (8.4-10.2); Carbon Dioxide 31 mmol/L (22.0-30.0); Chol/HDL Ratio 4.8 (1-3.5); Cholesterol 230 mg/dl (140-200); Erythrocyte Sedimentation Rate 2 mm/hr (0-30); Globulin 2.6 g/dL (1.3-3.2); HDL Cholesterol 48 mg/dl (40-60); Iron 152 ug/dL (37-170); Total Protein,Serum 6.8 g/dl (6.3-8.2); Triglycerides 137 mg/dl (30-150); VLDL Cholesterol 27 mg/dL (0-40)
[2021-08-01 14:22] LABS: Glucose 36 mg/dl (74-100)
[2021-08-01 14:30] LABS: Direct LDL Cholesterol 141.23 mg/dL (100-129)
[2021-08-01 14:33] LABS: Total Iron Binding Capacity 329 ug/dL (265-497)
[2021-08-01 14:37] LABS: Thyroid Stimulating Hormone 1.06 uIU/mL (0.465-4.68)
[2021-08-01 14:41] LABS: Ferritin 28.7 ng/ml (11.1-264)
[2021-08-01 14:49] LABS: 25-OH Vitamin D, Total < 12.8 ng/mL (30-100)
[2021-08-01 15:25] LABS: Vitamin B12 234 pg/mL (239-931)
== END ==
PROVIDERS: Visit Provider Physician Assistant
DX: R00.2 Palpitations (principal); E55.9 Vitamin D deficiency, unspecified
CPT/HCPCS: 80053; 80061; 82306; 82607; 82728; 83036; 83540; 83550; 84443; 85025; 85651

== ENCOUNTER 2021-08-02 11:58 | Emergency (ER) | payer BC, SELFPAY ==
[2021-08-02] VITALS (7 sets, daily range): BP systolic 110–136; BP diastolic 73–97; PULSE 73–93; RESP 12–19; TEMP 36.9; O2SAT 94–97; BMI 27.4
--- NOTE | 2021-08-02 11:59 | ECG_ITS ---
APPROVED REPORT Exam: Resting ECG HR:91 bpm ECG Measurements Heart Rate 91 AXES IL 134 P 80 QRSd 82 QRS 77 QT 337 T 69 QTc 386 Conclusion SINUS RHYTHM WITH OCCASIONAL SUPRAVENTRICULAR PREMATURE COMPLEXES MODERATE ST DEPRESSION [0.05+ mV ST DEPRESSION] ABNORMAL ECG UNCONFIRMED REPORT Electronically signed by : Moncho Deluna MD 08/03/2021 14:41:45
--- NOTE | 2021-08-02 12:03 | PC.NURSE ---
VERA KEVIN at
--- NOTE | 2021-08-02 12:13 | XR_ITS ---
FINAL REPORT CLINICAL HISTORY: chest pain..dizziness FINDINGS: A single portable view of the chest was obtained. The heart size and pulmonary vascularity are within normal limits. The mediastinum is within normal limits. The lungs are hyperinflated consistent with COPD. No acute pulmonary abnormality is identified. The bony thorax is intact. IMPRESSION: Findings consistent with COPD. No acute cardiopulmonary disease. Reviewed, Interpreted and Dictated by Amrit Sethi III, MD Transcribed by Neisha Landaverde Authenticated and [facility]
[2021-08-02 12:17] LABS: POC Glucose,Bedside 139 (70-110)
[2021-08-02 12:22] LABS: Basophils # 0.1 K/mm3 (0-0.2); Eosinophils # 0.1 K/mm3 (0.0-0.4); Eosinophils % 1.4 % (0.1-12.0); Hematocrit 46.7 % (37.0-47.0); Hemoglobin 15.4 g/dL (12.2-16.2); Lymphocytes # 2.8 K/mm3 (0.7-4.5); Lymphocytes % 40.1 % (10-50); Mean Corpuscular HGB Conc 33.1 g/dL (31.8-35.4); Mean Corpuscular Hemoglobin 33.8 pg (27.0-31.2); Mean Corpuscular Volume 102.2 fl (81-99); Mean Platelet Volume 8.6 fl (7.4-10.4); Monocytes # 0.3 K/mm3 (0.1-1.0); Monocytes % 4.6 % (1.7-9.3); Neutrophils # 3.6 K/mm3 (1.8-7.8); Neutrophils % 51.8 % (37.0-80.0); Platelet Count 257 K/mm3 (142-424); Red Blood Count 4.56 M/mm3 (4.20-5.40); Red Cell Distribution Width 12.9 % (11.5-17.5); White Blood Count 6.9 K/mm3 (4.8-10.8)
[2021-08-02 12:28] LABS: Anion Gap 10.8 mEq/L (5-15); Blood Urea Nitrogen 11 mg/dl (7-17); Calcium 8.8 mg/dl (8.4-10.2); Carbon Dioxide 28 mmol/L (22.0-30.0); Chloride 104 mmol/L (98-107); Creatinine Clearance Estimated 118 mL/min (50-200); Estimated Glomerular Filt Rate 102 ml/min (>60); GFR (African American) 123 ML/MIN (>60); Glucose 111 mg/dl (74-100); Potassium 3.8 mmoL/L (3.5-5.1); Sodium 139 mmol/L (136-145)
--- NOTE | 2021-08-02 12:29 | PC.NURSE ---
Notified rad of CXR
[2021-08-02 12:44] LABS: Troponin I < 0.01 ng/ml (0.00-0.034)
--- NOTE | 2021-08-02 12:55 | PC.NURSE ---
Rad at bedside
[2021-08-02 12:59] LABS: Thyroid Stimulating Hormone 0.88 uIU/mL (0.465-4.68)
--- NOTE | 2021-08-02 14:04 | HMH.EDGENADL ---
ED Disposition Clinical Impression: Chest pain Disposition: Home, Self-Care Condition on Discharge: Good Instructions: DI for Chest Pain Additional Instructions: Please follow-up with your primary care physician in 2 to 3 days for further management. Please return to the emergency department if your symptoms recur. Referrals: Carmen Mandel PA [Primary Care Provider] - - Critical Care Critical Care Time: No Attestation: On 08/02/21, the high probability of a clinically significant, sudden or life threatening deterioration of the following system(s) required my full and direct attention, intervention and personal management. The time I documented below is in addition to time spent performing reported procedures but includes the following listed in this critical care notation. Medical Decision Making - Medical Records Medical records reviewed: Yes: I reviewed the patient's medical records. - Elmo Inquiry Pt receiving controlled substance: No Vital Signs: 08/02/21 12:01 08/02/21 12:03 08/02/21 12:30 Temperature 98.5 F Temperature Source Oral Pulse Rate 86 78 Pulse Rate [Left Radial] 93 H Respiratory Rate 12 15 16 Blood Pressure 136/97 H 131/81 Blood Pressure [Left Arm] 136/97 H Blood Pressure Mean 100 Blood Pressure Mean [Left Arm] 110 Blood Pressure Source [Left Arm] Automatic Cuff Blood Pressure Position [Left Arm] Sitting 02 Sat by Pulse Oximetry 97 97 95 Oxygen Delivery Method Room Air Room Air Room Air 08/02/21 13:00 08/02/21 13:30 08/02/21 14:00 Temperature Temperature Source Pulse Rate 76 79 73 Pulse Rate [Left Radial] Respiratory Rate 17 19 15 Blood Pressure 118/83 114/79 110/73 Blood Pressure [Left Arm] Blood Pressure Mean 90 95 87 Blood Pressure Mean [Left Arm] Blood Pressure Source [Left Arm] Blood Pressure Position [Left Arm] 02 Sat by Pulse Oximetry 95 94 L 97 Oxygen Delivery Method Room Air Room Air Room Air 08/02/21 14:32 Temperature 98.5 F Temperature Source Pulse Rate 76 Pulse Rate [Left Radial] Respiratory Rate 12 Blood Pressure 110/73 Blood Pressure [Left Arm] Blood Pressure Mean Blood Pressure Mean [Left Arm] Blood Pressure Source [Left Arm] Blood Pressure Position [Left Arm] 02 Sat by Pulse Oximetry Oxygen Delivery Method Room Air - Lab Data Lab results reviewed: Yes: I reviewed the patient's lab results. Lab Results 08/02/21 12:04: POC Glucose 139 H 08/02/21 12:08: WBC 6.9, RBC 4.56, Hgb 15.4, Hct 46.7, MCV 102.2 H, MCH 33.8 H, MCHC 33.1, RDW 12.9, Plt Count 257, MPV 8.6, Neut % (Auto) 51.8, Lymph % (Auto) 40.1, [place] % (Auto) 4.6, Eos % (Auto) 1.4, Baso % (Auto) 2.0, Neut # (Auto) 3.6, Lymph # (Auto) 2.8, [place] # (Auto) 0.3, Eos # (Auto) 0.1, Baso # (Auto) 0.1 08/02/21 12:08: Sodium 139, Potassium 3.8, Chloride 104, Carbon Dioxide 28, Anion Gap 10.8, BUN 11, Creatinine 0.60, Estimated Creat Clear 118, Estimated GFR 102, Est GFR ( Amer) 123, Glucose 111 H, Calcium 8.8, Troponin I < 0.01, TSH 0.88 Result diagrams: 08/02/21 12:08 08/02/21 12:08 Medical Decision Narrative: Mrs. Souza is a 61-year-old female presenting to the emergency department for lightheadedness, jitteriness and chest pain since resolved. Symptom onset 5 days prior. Patient is scheduled to undergo Holter monitor placement by her PCP due to persistent symptoms. On physical exam patient has no wheezing, rales or rhonchi. No focal neurological deficits on exam. Patient appears comfortable and is nontoxic-appearing. Otherwise benign exam. Patient currently asymptomatic. Differentials to consider but not limited to include cardiac mediated/arrhythmia, acute ischemia, thyroid related issues, electrolyte abnormality, metabolic derangement, substance induced. Basic labs, troponin are obtained for further evaluation results are non-actionable. Bedside chest x-ray shows chronic COPD changes but no acute process. Patient is observed in the e
--- NOTE | 2021-08-02 14:21 | PC.NURSE ---
ER MD at speaking with patient regarding POC
--- NOTE | 2021-08-02 14:30 | PC.NURSE ---
Lyssa B, RN at going over discharge instructions
== END 2021-08-02 14:33 | disposition home or self-care (01) ==
PROVIDERS: Emergency Provider Student in an Organized Health Care Education/Training Program; PCP Physician Assistant
DX: R07.9 Chest pain, unspecified (principal); R42 Dizziness and giddiness; R45.1 Restlessness and agitation; R25.3 Fasciculation; R00.2 Palpitations; I50.9 Heart failure, unspecified; K21.9 Gastro-esophageal reflux disease without esophagitis; E78.5 Hyperlipidemia, unspecified; Z72.0 Tobacco use
CPT/HCPCS: 71045; 80048; 82962; 84443; 84484; 85025; 93005; 99285

== ENCOUNTER → 2021-08-03 12:27 | Outpatient (CLI) | payer BC, SELFPAY | PROVIDERS: PCP Physician Assistant; Visit Provider Physician Assistant | DX: R06.00 Dyspnea, unspecified (principal); R42 Dizziness and giddiness | CPT/HCPCS: 93225; 93226 ==

== ENCOUNTER → 2021-08-18 12:34 | Outpatient (CLI) | payer BC, SELFPAY ==
--- NOTE | 2021-08-18 14:38 | HMH.ITSHM ---
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 []TRAZODONE GABAPENTIN VITAMIN D2 DILTIAZEM CYCLOBENZAPRINE ATORVASTATIN ASA
== END ==
LOC: RAD 12:35
PROVIDERS: PCP Physician Assistant; Visit Provider Nurse Practitioner Family
DX: R06.00 Dyspnea, unspecified (principal); R00.2 Palpitations; R42 Dizziness and giddiness; R55 Syncope and collapse; I25.10 Atherosclerotic heart disease of native coronary artery without angina pectoris; I47.1 Supraventricular tachycardia; I49.9 Cardiac arrhythmia, unspecified; J44.9 Chronic obstructive pulmonary disease, unspecified; R94.31 Abnormal electrocardiogram [ECG] [EKG]; Z72.0 Tobacco use; Z95.5 Presence of coronary angioplasty implant and graft
CPT/HCPCS: 78452; 93017; 93306; A9502; J2785

== ENCOUNTER → 2021-11-03 10:41 | Outpatient (POV) | payer BC, SELFPAY ==
[2021-11-03 11:34] VITALS: BP 188/89; PULSE 85; RESP 18; TEMP 36.7; O2SAT 98; BMI 27.4
--- NOTE | 2021-11-03 12:03 | EXP.PAIN.OV ---
HPI Data of Consult Patient: new to practice Consult date: 11/03/21 Requesting Physician: Terri Rothman APRN Primary Care Provider: DYLON Tracey Consult Narrative Reason for consult: Low back pain, left leg pain History of present illness: Ms. Cherry is a 61 year old female who presents today as a new patient. She is a referral from Carmen Mandel's office. Today she rates her pain a 4 out of 10. She states this pain is all in her low back that radiates into her left leg down to her toes. Patient describes this as a achy, pressure sensation that is worse with increased activity. She also states that she has been experiencing significant leg cramps that keep her up at night. Patient states that she often has to get up and drink Gatorade and walk around in order to get any relief. Patient states that as a kid when she was 12 she fell out of a tree and broke her back. Patient states that she did not really know how significant her injury was until the last 20 years ago she started experiencing worsening of her symptoms. Patient was seen at [facility] where she had experimental injections that provided significant relief of her symptoms. Patient states that until a year and a half ago her pain was very manageable. Patient states that she is continue to have worsening low back pain that radiates into her left leg. She has tried vqut-cxi-[id number] medications that have not provided any improvement. She also takes gabapentin 300 mg twice a day by Carmen Mandel and muscle relaxer Flexeril. Patient denies any side effects from these medications. Patient states these medications do help take the edge off of her pain symptoms. Patient has also tried heat however this makes her pain worse. She does use IcyHot the provide significant improvement however only temporary relief. Patient has not seen physical therapy or chiropractor in the past. Patients last imaging was in 2019. Her Elmo is [id number]. Its been reviewed and appropriate. CC: Terri Rothman APRN [facility] Medical History (Updated 11/03/21 @ 12:14 by Terri Rothman APRN) CAD (coronary artery disease) COPD (chronic obstructive pulmonary disease) HLD (hyperlipidemia) Neuropathy Spondylosis of lumbar spine Surgery, elective Social History (Updated 10/12/21 @ 11:08 by Martha Lopez MA) Smoking Status: Current every day smoker tobacco type: cigarettes packs per day: 1 second hand exposure: Yes alcohol intake: never substance use type: marijuana current occupational status: employed Travel in the last 8 weeks: None household members: significant other housing: house current occupation: [employer] caffeine: Yes Review of Systems Review of Systems Review of systems:: pertinent systems reviewed and negative unless documented below Review of systems (narrative): Review of Systems: General: No recent weight changes, no fever, no sleep disturbances Respiratory: No cough, no shortness of air, no recurring pulmonary infections Cardiovascular/peripheral vascular: No chest pain, no palpitations, no edema, no shortness of breath Gastrointestinal: No new onset incontinence, normal bowel movements reported Genitourinary: No new onset incontinence Musculoskeletal: Low back pain, left leg pain Psychiatric: [Normal mood/affect] Neurological: [Denies weakness in extremities], [denies balance issues] Meds Home Medications and Allergies Home Medications Medication Instructions Recorded Confirmed Type gabapentin 300 mg capsule 300 mg PO BID Pain #60 caps 08/01/21 11/03/21 Rx aspirin-caffeine 845 mg-65 mg oral 1 each PO Q4HP PRN MIGRAINES 08/09/21 11/03/21 History powder packet (BC Pain Relief) atorvastatin 10 mg tablet 10 mg PO HS Cholesterol 11/03/21 11/03/21 History cyclobenzaprine 10 mg tablet See Rx Instructions .Route 11/03/21 11/03/21 History .COMPLEX MUSCLES diltiazem HCl 120 mg 120 mg PO DAILY HEART 11/03/21 11/03/21 Histor
== END ==
PROVIDERS: PCP Physician Assistant; Visit Provider Nurse Practitioner Family
DX: M51.16 Intervertebral disc disorders with radiculopathy, lumbar region (principal); M24.28 Disorder of ligament, vertebrae; M79.605 Pain in left leg
CPT/HCPCS: 99202; G0463

== ENCOUNTER 2021-11-25 13:56 | Day surgery (SDC) | payer BC, SELFPAY ==
[2021-11-25 14:41] VITALS: BP 114/75; PULSE 87; RESP 18; TEMP 36.6; O2SAT 97; BMI 28.2
[2021-11-25 14:52] VITALS: BP 131/86; PULSE 83; RESP 18; O2SAT 98
[2021-11-25 14:54] VITALS: BP 131/86; PULSE 83; RESP 18; O2SAT 98
[2021-11-25 15:10] VITALS: BP 123/80; PULSE 82; RESP 20; O2SAT 95
--- NOTE | 2021-11-25 15:36 | EXP.PAIN.PRO ---
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 MRI does show ligamentum flavum hypertrophy at L3-L4 and L4-L5. She has increasing stenosis at these levels. We will do a lumbar pleural steroid injection with epidurogram today to assess levels of stenosis and candidacy for minimally invasive lumbar decompression. Procedure Details:: Informed consent was obtained and the risk and benefits of the procedure was explained to the patient. The patient was taken to the procedure room. The patient was placed prone on the procedure table. The patient was prepped and draped in sterile fashion. C-arm fluoroscopy was used to view the lumbar spine. Skin and subcutaneous tissues were anesthetized using lidocaine. I placed an 18-gauge epidural needle and advanced into the L4-L5 interspace using fluoroscopic guidance and [id number] to air. After confirmation of needle placement in the epidural space with dye I injected 2 mL of lidocaine 1.5% with Depo-Medrol 80 mg. Patient tolerated the procedure well with no complications. Plan and Disposition:: Based on epidurogram this patient would benefit from minimally invasive lumbar decompression bilateral L3-4 and L4-L5. There is difficulty getting to the epidural space so we will do this without an epidural.
== END 2021-11-25 15:05 | disposition home or self-care (01) ==
LOC: SC.PAINP 13:59
PROVIDERS: PCP Physician Assistant; Visit Provider Anesthesiology
DX: M51.16 Intervertebral disc disorders with radiculopathy, lumbar region (principal); M48.062 Spinal stenosis, lumbar region with neurogenic claudication
CPT/HCPCS: 62323; J1040; Q9966

== ENCOUNTER → 2021-12-08 13:50 | Outpatient (POV) | payer BC, SELFPAY ==
[2021-12-08 14:04] VITALS: BMI 28.3
--- NOTE | 2021-12-08 14:12 | EXP.PAIN.SOA ---
[facility] Pain Management SOAP Note Subjective:: Patient is a pleasant 61-year-old female who presents today for follow-up of lumbar epidural with epidurogram at L4-L5 on 11/25/2021. We are currently treating the patient for degenerative disc disease of lumbar spine with lumbar radiculopathy symptoms, left leg pain, low back pain, ligamentum flavum hypertrophy multilevel. Today the patient rates her pain a 0 out of 10. She states she has had significant improvement of her symptoms following this injection. Patient rates her pain relief at its least 60%. Patient denies any new trauma or injury. Patient denies any change in location or type of pain she experiences. Following her epidural with epidurogram it was recommended that she proceed forward with a minimally invasive lumbar decompression at L3-L4 and L4-L5 bilaterally however patient is unable to pay for the 25% deductible. Patient is currently managed with gabapentin 300 mg twice a day. Patient denies any side effects from this medication. She states this medication does adequately help manage her pain symptoms. Patient has tried [id number] medications however these did not help with her symptoms. Patient is also prescribed a muscle relaxer by her primary care doctor. Patient does use heat and icy hot to provide some additional relief. Her Elmo is [id number]. It has been reviewed and appropriate. Review of Systems: General: No recent weight changes, no fever, no sleep disturbances Respiratory: No cough, no shortness of air, no recurring pulmonary infections Cardiovascular/peripheral vascular: No chest pain, no palpitations, no edema, no shortness of breath Gastrointestinal: No new onset incontinence, normal bowel movements reported Genitourinary: No new onset incontinence Musculoskeletal: Low back pain, bilateral leg pain Psychiatric: [Normal mood/affect] Neurological: [Denies weakness in extremities], [denies balance issues] Objective:: Physical Exam: General: Alert and oriented x3, no acute distress, pleasant and cooperative Lungs: Respirations even and unlabored, symmetrical chest expansion Eyes: PERRL Musculoskeletal: Flexion and extension of lumbar [spine] somewhat guarded secondary to pain, [antalgic gait noted] Neurological: Speech clear, no gross sensory deficit Assessment:: Degenerative disc disease of lumbar spine with lumbar radiculopathy symptoms, left leg pain, low back pain, ligamentum flavum hypertrophy Plan:: Patient has had significant improvement of her pain symptoms following her last lumbar epidural steroid injection. At this time the patient does not require any additional injective therapy. We will schedule the patient for a 1 month follow-up. Patient will return to clinic in 1 month for reevaluation of symptoms and follow-up. Patient has been instructed to contact the clinic with any concerns before the next appointment. Dr. Benitez has reviewed this note and agrees with this plan of care. This note was dictated using voice recognition software and make contain errors or omissions. [facility] Medical History CAD (coronary artery disease) COPD (chronic obstructive pulmonary disease) HLD (hyperlipidemia) Neuropathy Spondylosis of lumbar spine Surgery, elective Social History (Updated 11/25/21 @ 14:44 by Meli Mills RN) Smoking Status: Current every day smoker tobacco type: cigarettes packs per day: 1 second hand exposure: Yes alcohol intake: never substance use type: marijuana current occupational status: other Travel in the last 8 weeks: None household members: significant other housing: house current occupation: [employer] caffeine: Yes
== END ==
PROVIDERS: PCP Physician Assistant; Visit Provider Nurse Practitioner Family
DX: M51.16 Intervertebral disc disorders with radiculopathy, lumbar region (principal); M79.605 Pain in left leg; M24.28 Disorder of ligament, vertebrae; Z72.0 Tobacco use
CPT/HCPCS: 99212; G0463

== ENCOUNTER → 2022-01-12 11:27 | Outpatient (POV) | payer BC, SELFPAY ==
--- NOTE | 2022-01-12 11:40 | EXP.PAIN.SOA ---
[facility] Pain Management SOAP Note Subjective:: Patient is a pleasant 61-year-old female who presents today for follow-up. We are currently treat the patient for degenerative disc disease of lumbar spine with lumbar radiculopathy symptoms, left leg pain, low back pain, ligamentum flavum hypertrophy multilevel. Today she rates her pain a 4 out of 10. Patient states the pain is all in her low back on the right side that radiates down her right leg. Patient describes this as a sharp, achy sensation that is worse with increased activity and certain positions. Patient states this has been going on for the last week or 2. Patient states she still continues to get significant improvement from her previous lumbar epidural injection on 11/25/2021. Patient is currently managed with gabapentin 300 mg twice a day by Carmen Mandel's office however patient is requesting that we take over this medication. Patient is trying to limit how many doctors she has to see on a regular basis to help with her cost [id number]. Patient denies any side effects with this medication. Patient states this does help with her symptoms. Patient does use a heating pad and icy hot to provide additional relief. Her Elmo is [id number]. It has been reviewed and appropriate. Review of Systems: General: No recent weight changes, no fever, no sleep disturbances Respiratory: No cough, no shortness of air, no recurring pulmonary infections Cardiovascular/peripheral vascular: No chest pain, no palpitations, no edema, no shortness of breath Gastrointestinal: No new onset incontinence, normal bowel movements reported Genitourinary: No new onset incontinence Musculoskeletal: Low back pain, right leg pain Psychiatric: [Normal mood/affect] Neurological: [Denies weakness in extremities], [denies balance issues] Objective:: Physical Exam: General: Alert and oriented x3, no acute distress, pleasant and cooperative Lungs: Respirations even and unlabored, symmetrical chest expansion Eyes: PERRL Musculoskeletal: Flexion and extension of lumbar [spine] somewhat guarded secondary to pain, [antalgic gait noted] extreme point tenderness along right SI and positive right Alex's, Fiorella's, Gaenslen's, compression and distraction exam Neurological: Speech clear, no gross sensory deficit Assessment:: Degenerative disc disease of lumbar spine with lumbar radiculopathy symptoms, left leg pain, low back pain, ligamentum flavum hypertrophy multilevel, sacroiliitis right-sided Plan:: Patient is experiencing significant pain in her low back along her right side that radiates into her right leg down to her knee. Patient did have limited range of motion of her lumbar spine and point tenderness along her right SI as well as a positive right Alex's, Fiorella's, Gaenslen's, compression and distraction exam. I have discussed with the patient that she may benefit from a diagnostic right SI injection. Risk and benefits were discussed with the patient and she would like to proceed forward with this plan of care. I will order the patient gabapentin 300 mg twice a day and provide a 1 month supply of this medication. We will also send notification to her primary care doctor's office to let them know that we are taking over this prescription. We will schedule the patient for a diagnostic right SI injection. Patient has been instructed to contact the clinic with any concerns before the next appointment. Dr. Benitez has reviewed this note and agrees with this plan of care. This note was dictated using voice recognition software and make contain errors or omissions. [facility] Disclaimer: The information contained in this section may have been updated after the patient was seen, as this information can be updated by other users. 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
[2022-01-12 11:48] VITALS: BP 142/87; PULSE 79; RESP 18; O2SAT 96; BMI 25.8
== END | disposition home or self-care (01) ==
PROVIDERS: PCP Physician Assistant; Visit Provider Nurse Practitioner Family
DX: M51.16 Intervertebral disc disorders with radiculopathy, lumbar region (principal); M46.1 Sacroiliitis, not elsewhere classified; M79.605 Pain in left leg; Z72.0 Tobacco use; Z79.899 Other long term (current) drug therapy
CPT/HCPCS: 99212; G0463

== ENCOUNTER 2022-01-17 13:00 | Day surgery (SDC) | payer BC, SELFPAY ==
[2022-01-17 13:10] VITALS: BP 164/89; PULSE 88; RESP 18; TEMP 36.6; O2SAT 96; BMI 26.1
[2022-01-17 13:16] VITALS: BP 124/80; PULSE 90; RESP 18; O2SAT 98
[2022-01-17 13:17] VITALS: BP 124/80; PULSE 90; RESP 18; O2SAT 98
[2022-01-17 13:20] VITALS: BP 129/85; PULSE 88; RESP 18; O2SAT 97
--- NOTE | 2022-01-17 13:20 | EXP.PAIN.PRO ---
Procedure Date: 01/17/22 Time: 13:40 Anesthesiologist:: Daron Rodriguez CRNA Complications:: None Pre-procedure Diagnosis:: Right sacroiliitis Post-procedure Diagnosis:: Same Indications for Procedure:: Very pleasant 61-year-old female comes our clinic today for right sacroiliac joint injection. She has extreme point tenderness over the right SI joint upon evaluation. She rates her pain 7/10. Procedure Details:: Procedure: Right sacroliliac joint injection under fluoroscopy Informed consent was obtained and the risk and benefits of the procedure were explained to the patient.~ The patient was taken to the procedure room and noninvasive monitors were placed including noninvasive blood pressure cuff and pulse oximeter.~ The patient was placed prone on the procedure table.~ The~ right hip was cleansed using Betadine as a cleansing solution.~ C-arm fluorosocpy was used to view the right SI joint.~ The skin and subcutaneous tissues were anesthetized using Lidocaine 1.5% and a 25-gauge needle.~ After this, a 22-gauge spinal needle was inserted under fluoroscopic guidance into the inferior aspect of the right SI joint.~ Omnipaque dye was injected and a good spread was seen throughout the joint.~ After this, approximately 5 mL of bupivacaine 0.25% and Depo-Medrol 40 mg was incrementally injected into the sacroiliac joint.~ The patient tolerated the procedure well with no complications.~ The patient was observed in the Pain Clinic, then discharged home neurologically intact.~ Plan and Disposition:: Patient was discharged without incident.
== END 2022-01-17 13:20 | disposition home or self-care (01) ==
PROVIDERS: PCP Physician Assistant; Visit Provider Nurse Anesthetist, Certified Registered
DX: M46.1 Sacroiliitis, not elsewhere classified (principal)
CPT/HCPCS: 27096; G0260; J1040

== ENCOUNTER → 2022-02-15 09:15 | Outpatient (POV) | payer BC, SELFPAY ==
[2022-02-15 09:30] VITALS: BP 141/81; PULSE 78; RESP 18; O2SAT 97; BMI 26.6
--- NOTE | 2022-02-15 09:32 | EXP.PAIN.SOA ---
[facility] Pain Management SOAP Note Subjective:: Patient is a pleasant 61-year-old female who presents today for follow-up of right SI injection on 01/17/2022. We are currently treating the patient for degenerative disc disease of lumbar spine with lumbar radiculopathy symptoms, left leg pain, low back pain, ligamentum flavum hypertrophy multilevel, right-sided sacroiliitis. Today the patient states she has had at least 75% improvement following this injection and feels like it still continuing to provide relief. Patient states she has been able to increase her activity and range of motion with decreased pain symptoms. Patient does state that it did take approximately 5 to 6 days before she noticed significant relief. Patient is currently managed with gabapentin 300 mg twice a day. Patient denies any side effects from this medication. She states this medication does help her pain symptoms. Patient does state that she does not believe she needs refills at this time. Patient does use cxio-iul-iiehbyy IcyHot and a heating pad to provide additional relief. Her Elmo is [id number]. Its been reviewed and appropriate. Review of Systems: General: No recent weight changes, no fever, no sleep disturbances Respiratory: No cough, no shortness of air, no recurring pulmonary infections Cardiovascular/peripheral vascular: No chest pain, no palpitations, no edema, no shortness of breath Gastrointestinal: No new onset incontinence, normal bowel movements reported Genitourinary: No new onset incontinence Musculoskeletal: Low back pain Psychiatric: [Normal mood/affect] Neurological: [Denies weakness in extremities], [denies balance issues] Objective:: Physical Exam: General: Alert and oriented x3, no acute distress, pleasant and cooperative Lungs: Respirations even and unlabored, symmetrical chest expansion Eyes: PERRL Musculoskeletal: Flexion and extension of lumbar [spine] somewhat guarded secondary to pain, [antalgic gait noted] Neurological: Speech clear, no gross sensory deficit Assessment:: Degenerative disc disease of lumbar spine with lumbar radiculopathy symptoms, left leg pain, low back pain, ligamentum flavum hypertrophy multilevel, right-sided sacroiliitis Plan:: Patient has had significant improvement of her pain symptoms following her last SI injection and does not require any additional injective therapy at this time. Patient will return to clinic in 1 month for reevaluation of symptoms, medication refill and follow-up. Patient has been instructed to contact the clinic with any concerns before the next appointment. Dr. Benitez has reviewed this note and agrees with this plan of care. This note was dictated using voice recognition software and make contain errors or omissions. [facility] Disclaimer: The information contained in this section may have been updated after the patient was seen, as this information can be updated by other users. Medical History CAD (coronary artery disease) COPD (chronic obstructive pulmonary disease) HLD (hyperlipidemia) Neuropathy Spondylosis of lumbar spine Surgery, elective Family History (Updated 01/17/22 @ 13:03 by Marilee Lira RN) Other No significant family history Social History Smoking Status: Current every day smoker tobacco type: cigarettes packs per day: 1 second hand exposure: Yes alcohol intake: never substance use type: marijuana current occupational status: employed Travel in the last 8 weeks: None household members: significant other housing: house current occupation: [employer] caffeine: Yes
== END ==
PROVIDERS: PCP Physician Assistant; Visit Provider Nurse Practitioner Family
DX: M51.16 Intervertebral disc disorders with radiculopathy, lumbar region (principal); M46.1 Sacroiliitis, not elsewhere classified; M79.605 Pain in left leg
CPT/HCPCS: 99212; G0463

== ENCOUNTER → 2022-02-15 09:45 | Outpatient (CLI) | payer BC, SELFPAY ==
[2022-02-15 10:41] LABS: Amphetamine/Metha Screen,Urine Negative ng/ml (<1000)
[2022-02-15 10:42] LABS: Barbiturates Screen,Urine Negative ng/ml (<200)
[2022-02-15 10:43] LABS: Benzodiazepines Screen,Urine Negative ng/ml (<200)
[2022-02-15 10:44] LABS: Cannabinoid Screen,Urine Positive ng/ml (<50)
[2022-02-15 10:45] LABS: Cocaine Screen,Urine Negative ng/ml (<300)
[2022-02-15 10:46] LABS: Methadone Screen,Urine Negative ng/ml (<300)
[2022-02-15 10:47] LABS: Opiate Screen,Urine Negative ng/ml (<300); Phencyclidine Screen,Urine Negative ng/ml (<25)
[2022-02-18 23:47] LABS: Opiates Negative (Cutoff=100)
== END ==
PROVIDERS: PCP Physician Assistant; Visit Provider Nurse Practitioner Family
DX: Z79.891 Long term (current) use of opiate analgesic (principal)
CPT/HCPCS: 80305; 80361; 80365; G0480

== ENCOUNTER → 2022-03-28 09:20 | Outpatient (POV) | payer BC, SELFPAY ==
[2022-03-28 09:45] VITALS: BP 111/68; PULSE 86; RESP 18; TEMP 36.8; O2SAT 95; BMI 25.8
--- NOTE | 2022-03-28 10:11 | A.OFFVIS_ITS ---
[facility] Pain Management SOAP Note Subjective:: This patient is a pleasant 61-year-old female that comes our clinic today for follow-up visit for medication refills. We currently are prescribing the patient gabapentin 300 mg 1 p.o. 3 times daily. She is due for refill. Her Elmo #[id number] has been reviewed and appropriate. Her UDS is been appropriate in the past. Patient states gabapentin gives her 70 to 80% improvement terms of her overall symptoms. Several months ago patient had right sacroiliac joint injection with significant improvement. Patient states she has not had pain in her low lumbar and right posterior hip since the injection. Objective:: Patient is awake alert [place] x3. In no acute distress. Flexion-extension lumbar spine normal. Deep tendon reflexes upper lower extremities normal. Motor strength upper and lower extremities normal. There is no gross sensory deficit. Gait is normal. Assessment:: Degenerative disc disease lumbar spine multilevels. Lumbar radiculopathy. Right sacroiliitis Plan:: We will refill her gabapentin 300 mg 1 p.o. 3 times daily. She will return to see us in 3 months. [facility] Disclaimer: The information contained in this section may have been updated after the patient was seen, as this information can be updated by other users. Medical History CAD (coronary artery disease) COPD (chronic obstructive pulmonary disease) HLD (hyperlipidemia) Neuropathy Spondylosis of lumbar spine Surgery, elective REMOVAL OF POLYP FROM VOCAL CHORD Family History Other No significant family history Social History Smoking Status: Current every day smoker tobacco type: cigarettes packs per day: 1 second hand exposure: Yes alcohol intake: never substance use type: marijuana current occupational status: other Travel in the last 8 weeks: None household members: significant other housing: house current occupation: [employer] caffeine: Yes
== END | disposition home or self-care (01) ==
PROVIDERS: PCP Physician Assistant; Visit Provider Nurse Anesthetist, Certified Registered
DX: M51.16 Intervertebral disc disorders with radiculopathy, lumbar region (principal); M46.1 Sacroiliitis, not elsewhere classified
CPT/HCPCS: 99212; G0463

== ENCOUNTER → 2022-05-17 14:35 | Outpatient (POV) | payer BC, SELFPAY ==
[2022-05-17 15:03] VITALS: BP 132/82; PULSE 79; RESP 18; O2SAT 97; BMI 26.6
--- NOTE | 2022-05-17 15:48 | EXP.PAIN.SOA ---
[facility] Pain Management SOAP Note Subjective:: Patient is a pleasant 62-year-old female who presents today for follow-up. We are currently treating the patient for degenerative disc disease of lumbar spine with lumbar radiculopathy symptoms, left leg pain, low back pain, ligamentum flavum hypertrophy multilevel, right-sided sacroiliitis.? Today she rates her pain an 8 out of 10. Patient denies any new trauma or injury. Patient denies any change to location or type of pain she experiences. She states her pain is all in her low back along the right side that goes into her right hip. Patient does state that she cannot tolerate prolonged standing or walking or sitting due to the pain. She does also state that laying down causes worsening symptoms and she frequently has trouble getting sleep due to her pain. She does state it interferes with her ability to perform activities of daily living such as cooking and cleaning. Patient does have chronic sacroiliitis and has had multiple injections that provided upwards of 70 to 80% relief. Patient is currently managed with gabapentin 300 mg twice a day.? Patient denies any side effects from this medication.? She continues to use IcyHot and a heating pad to provide additional relief.? Her Elmo is [id number].? Its been reviewed and appropriate. Review of Systems: General: No recent weight changes, no fever, no sleep disturbances Respiratory: No cough, no shortness of air, no recurring pulmonary infections Cardiovascular/peripheral vascular: No chest pain, no palpitations, no edema, no shortness of breath Gastrointestinal: No new onset incontinence, normal bowel movements reported Genitourinary: No new onset incontinence Musculoskeletal: Low back pain, right hip pain Psychiatric: [Normal mood/affect] Neurological: [Denies weakness in extremities], [denies balance issues] Objective:: Physical Exam: General: Alert and oriented x3, no acute distress, pleasant and cooperative Lungs: Respirations even and unlabored, symmetrical chest expansion Eyes: PERRL Musculoskeletal: Flexion and extension of lumbar [spine] somewhat guarded secondary to pain, [antalgic gait noted] extreme point tenderness along right SI and positive right Alex's, Fiorella's, Gaenslen's, compression and distraction exam Neurological: Speech clear, no gross sensory deficit Assessment:: Degenerative disc disease of lumbar spine with lumbar radiculopathy symptoms, left leg pain, low back pain, ligamentum flavum hypertrophy multilevel, chronic right-sided sacroiliitis Plan:: WithPatient is experiencing worsening pain in her low back along the right side with radiating symptoms to her right hip. Patient had limited range of motion of her lumbar spine with extreme point tenderness at her right SI and positive right Alex's, Fiorella's, Gaenslen's, compression and distraction exam. Patient has had multiple episodes of sacroiliitis and we have done multiple SI injections that did provide upwards of 70 to 90% relief. I have discussed with the patient that she may benefit from the right SI stabilization procedure. Risk and benefits were discussed with the patient and educational handouts were given during today's visit. I will order right SI injection at today's visit along with x-ray of her bilateral hips and SI's. Patient will be scheduled for a right SI injection. We will look into resubmitting for the right SI stabilization procedure in the future. Patient has been instructed to contact the clinic with any concerns before the next appointment. Dr. Benitez has reviewed this note and agrees with this plan of care. This note was dictated using voice recognition software and make contain errors or omissions. [facility] Disclaimer: The information contained in this section may have been updated after the patient was seen, as this information can be updated by other users. Medical History CAD (coronary artery disease)
== END ==
PROVIDERS: PCP Physician Assistant; Visit Provider Nurse Practitioner Family
DX: M51.16 Intervertebral disc disorders with radiculopathy, lumbar region (principal); M46.1 Sacroiliitis, not elsewhere classified; M79.605 Pain in left leg
CPT/HCPCS: 99212; G0463

== ENCOUNTER → 2022-05-19 12:01 | Outpatient (CLI) | payer BC, SELFPAY ==
--- NOTE | 2022-05-19 12:09 | XR_ITS ---
FINAL REPORT CLINICAL HISTORY: Chronic right hip pain COMPARISON: None FINDINGS: RIGHT HIP Three views of the right hip including an AP view of the pelvis demonstrate no acute fracture or dislocation. The joint spaces appear normal. The visualized bony structures are well aligned. No soft tissue abnormality is seen. IMPRESSION: No acute bony abnormality. Reviewed, Interpreted and Dictated by Mau Crowley MD Transcribed by Neisha Landaverde Authenticated and [facility]
--- NOTE | 2022-05-19 12:09 | XR_ITS ---
FINAL REPORT CLINICAL HISTORY: Chronic left hip pain COMPARISON: None FINDINGS: LEFT HIP: Two views of the left hip demonstrate no acute fracture or dislocation. The joint spaces appear normal. The visualized bony structures are well aligned. No soft tissue abnormality is seen. IMPRESSION: No acute bony abnormality. Reviewed, Interpreted and Dictated by Mau Crowley MD Transcribed by Neisha Landaverde Authenticated and [facility]
--- NOTE | 2022-05-19 12:09 | XR_ITS ---
FINAL REPORT CLINICAL HISTORY: CHRONIC SI pain COMPARISON: None FINDINGS: SACROILIAC JOINTS SERIES Three views were obtained. There is no acute fracture or dislocation. The joint spaces appear normal. The visualized bony structures are well aligned. No soft tissue abnormality is seen. IMPRESSION: No acute bony abnormality. Reviewed, Interpreted and Dictated by Mau Crowley MD Transcribed by Neisha Landaverde Authenticated and [facility]
== END ==
LOC: RAD 12:02
PROVIDERS: PCP Physician Assistant; Visit Provider Nurse Practitioner Family
DX: M53.3 Sacrococcygeal disorders, not elsewhere classified (principal); M25.552 Pain in left hip; M25.551 Pain in right hip
CPT/HCPCS: 72202; 73502

== ENCOUNTER 2022-05-23 14:16 | Day surgery (SDC) | payer BC, SELFPAY ==
[2022-05-23 14:38] VITALS: BP 121/72; PULSE 81; RESP 18; TEMP 36.9; O2SAT 95; BMI 27.4
[2022-05-23 14:51] VITALS: BP 140/77; PULSE 68; RESP 18; O2SAT 97
--- NOTE | 2022-05-23 14:51 | EXP.PAIN.PRO ---
Procedure Date: 05/23/22 Time: 14:45 Anesthesiologist:: Daron Rodriguez CRNA Complications:: None Pre-procedure Diagnosis:: Right sacroiliitis Post-procedure Diagnosis:: Same Indications for Procedure:: Patient is a pleasant 62-year-old female comes our clinic today for right sacroiliac joint injection. She has extreme point tenderness over the right sacroiliac joint. She rates her pain 7/10. Patient has difficulty transitioning from sitting to standing. Difficulty with ambulation. Procedure Details:: Procedure: Right sacroliliac joint injection under fluoroscopy Informed consent was obtained and the risk and benefits of the procedure were explained to the patient.~ The patient was taken to the procedure room and noninvasive monitors were placed including noninvasive blood pressure cuff and pulse oximeter.~ The patient was placed prone on the procedure table.~ The~ right hip was cleansed using Betadine as a cleansing solution.~ C-arm fluorosocpy was used to view the right SI joint.~ The skin and subcutaneous tissues were anesthetized using Lidocaine 1.5% and a 25-gauge needle.~ After this, a 22-gauge spinal needle was inserted under fluoroscopic guidance into the inferior aspect of the right SI joint.~ Omnipaque dye was injected and a good spread was seen throughout the joint.~ After this, approximately 5 mL of bupivacaine 0.25% and Depo-Medrol 40 mg was incrementally injected into the sacroiliac joint.~ The patient tolerated the procedure well with no complications.~ The patient was observed in the Pain Clinic, then discharged home neurologically intact.~ Plan and Disposition:: Patient was discharged without incident
[2022-05-23 14:52] VITALS: BP 140/77; PULSE 68; RESP 18; O2SAT 98
[2022-05-23 14:54] VITALS: BP 118/77; PULSE 71; RESP 18; O2SAT 95
== END 2022-05-23 14:54 | disposition home or self-care (01) ==
PROVIDERS: PCP Physician Assistant; Visit Provider Nurse Anesthetist, Certified Registered
DX: M46.1 Sacroiliitis, not elsewhere classified (principal)
CPT/HCPCS: 27096; G0260

== ENCOUNTER → 2022-06-13 09:56 | Outpatient (POV) | payer BC, SELFPAY ==
[2022-06-13 10:09] VITALS: BP 116/79; PULSE 72; RESP 20; TEMP 36.8; O2SAT 97; BMI 25.8
--- NOTE | 2022-06-13 10:13 | EXP.PAIN.SOA ---
[facility] Pain Management SOAP Note Subjective:: Patient is a very pleasant 62-year-old female that returns our clinic today for follow-up visit after receiving right sacroiliac joint injection on 05/23/2022. Patient reports 90% improvement in terms of her overall right posterior and low lumbar right side pain. Patient ambulating with no pain. Patient transitioning from sitting to standing with no pain. Patient very pleased with the results. Objective:: Patient is awake alert [place] x3. In no acute distress. Flexion-extension lumbar spine normal. Deep tendon reflexes upper and lower extremities normal. Motor strength upper and lower extremities normal. There is no gross sensory deficit. Gait is normal. Assessment:: Right sacroiliitis. Plan:: Patient will call us on an as-needed basis for further injection therapy. [facility] Disclaimer: The information contained in this section may have been updated after the patient was seen, as this information can be updated by other users. Medical History CAD (coronary artery disease) COPD (chronic obstructive pulmonary disease) HLD (hyperlipidemia) Neuropathy Spondylosis of lumbar spine Surgery, elective REMOVAL OF POLYP FROM VOCAL CHORD Family History Other No significant family history Social History Smoking Status: Current every day smoker tobacco type: cigarettes packs per day: 1 second hand exposure: Yes alcohol intake: never substance use type: marijuana current occupational status: other Travel in the last 8 weeks: None household members: significant other housing: house current occupation: [employer] caffeine: Yes
== END ==
PROVIDERS: PCP Physician Assistant; Visit Provider Nurse Anesthetist, Certified Registered
DX: M46.1 Sacroiliitis, not elsewhere classified (principal)
CPT/HCPCS: 99212; G0463

== ENCOUNTER → 2022-07-26 10:30 | Outpatient (POV) | payer BC, SELFPAY ==
[2022-07-26 10:39] VITALS: BP 147/78; PULSE 83; RESP 18; TEMP 36.6; O2SAT 97; BMI 26.6
--- NOTE | 2022-07-26 10:42 | EXP.PAIN.SOA ---
[facility] Pain Management SOAP Note Subjective:: Patient is a pleasant 62-year-old female who presents today for follow-up.? We are currently treating the patient for degenerative disc disease of lumbar spine with lumbar radiculopathy symptoms, left leg pain, low back pain, ligamentum flavum hypertrophy multilevel, right-sided sacroiliitis.? Today she rates her pain an 10 out of 10 and denies any new trauma.?She states she is experiencing worsening pain in her low back with radiating symptoms into her bilateral hips.? She does state the pain is an aching, throbbing sensation that is worse with increased activity. Patient does state that she cannot tolerate prolonged standing or walking or sitting due to the pain.? She continues to have problems with sleeping related to her pain.? She does state it interferes with her ability to perform activities of daily living such as cooking and cleaning.? Patient has had previous epidural injections that did provide significant relief of upwards of 60 to 80% lasting 6 months with her first injection however her second 1 only lasted for 2 weeks. Patient did recently have a right SI injection back in May that did provide 90% improvement. Patient is currently managed with gabapentin 300 mg twice a day.? Patient denies any side effects from this medication.? She continues to use IcyHot and heat. She states she also uses BC powder on a regular basis to help with her pain. Her Elmo is [id number].? Its been reviewed and appropriate. Review of Systems: General: No recent weight changes, no fever, no sleep disturbances Respiratory: No cough, no shortness of air, no recurring pulmonary infections Cardiovascular/peripheral vascular: No chest pain, no palpitations,? no edema, no shortness of breath Gastrointestinal: No new onset incontinence, normal bowel movements reported Genitourinary: No new onset incontinence Musculoskeletal: Low back pain, right hip pain Psychiatric: [Normal mood/affect] Neurological: [Denies weakness in extremities], [denies balance issues] Objective:: Physical Exam: General: Alert and oriented x3, no acute distress, pleasant and cooperative Lungs: Respirations even and unlabored, symmetrical chest expansion Eyes: PERRL Musculoskeletal: Flexion and extension of lumbar [spine] somewhat guarded secondary to pain, [antalgic gait noted] Neurological: Speech clear, no gross sensory deficit Assessment:: Degenerative disc disease of lumbar spine with lumbar radiculopathy symptoms, left leg pain, low back pain, ligamentum flavum hypertrophy multilevel, right-sided sacroiliitis, spinal stenosis with neurogenic claudication symptoms Plan:: Patient is experiencing significant pain in her low back and bilateral hips with radiating symptoms. Patient did have limited range of motion of her lumbar spine. I have discussed with the patient that her previous lumbar epidural we did do an epidurogram and it did show severe stenosis at L3-L4 and L4-L5. I have discussed with the patient that she is a beneficial candidate for the minimally invasive lumbar decompression procedure. Risk and benefits were discussed with the patient and she would like to proceed forward. I have also counseled the patient that we can schedule her for a lumbar epidural steroid injection in the meantime until we can get her a surgical date. Risk and benefits of those injections were discussed with her. Patient is on BC powder which has 845 mg of aspirin. I have counseled the patient that she will have to discontinue this medication for 7 days prior to her injection and surgical procedure. We will schedule the patient for an LESI L4-L5. We will also submit to insurance for a M ILD bilaterally L3-L4 and L4-L5. Patient has been instructed to contact the clinic with any concerns before the next appointment. Dr. Benitez has reviewed this note and agrees with this plan of care. This note was dictated using voice recognition software and make contain errors or omission
== END ==
PROVIDERS: PCP Physician Assistant; Visit Provider Nurse Practitioner Family
DX: M51.16 Intervertebral disc disorders with radiculopathy, lumbar region (principal); M46.1 Sacroiliitis, not elsewhere classified; M79.605 Pain in left leg; M48.062 Spinal stenosis, lumbar region with neurogenic claudication
CPT/HCPCS: 99212; G0463

== ENCOUNTER 2022-08-08 10:55 | Day surgery (SDC) | payer BC, SELFPAY ==
[2022-08-08 11:14] VITALS: BP 91/66; PULSE 72; RESP 16; TEMP 36.3; O2SAT 96; BMI 26.6
[2022-08-08 11:36] VITALS: BP 138/77; PULSE 77; RESP 18; O2SAT 97
[2022-08-08 11:37] VITALS: BP 138/77; PULSE 77; RESP 18; O2SAT 97
--- NOTE | 2022-08-08 11:39 | EXP.PAIN.PRO ---
Procedure Date: 08/08/22 Time: 11:30 Anesthesiologist:: Daron Rodriguez CRNA Complications:: None Pre-procedure Diagnosis:: Degenerative disc lumbar spine multilevels. Lumbar radiculopathy Post-procedure Diagnosis:: Same. Indications for Procedure:: Very pleasant 62-year-old female comes our clinic today for a therapeutic lumbar epidural steroid injection at the L4-5 level. Patient has had moderate to significant improvement with previous lumbar epidural injections. Patient complains of low back pain as well as bilateral hip and leg radicular symptoms. She rates her pain 7/10. Procedure Details:: Procedure: Lumbar epidural steroid injection under fluoroscopy Informed consent was obtained and the risks and benefits of the procedure were explained to the patient. The patient was taken to the procedure room and noninvasive monitors placed, including noninvasive blood pressure cuff and pulse oximeter. The back was viewed using C-arm Fluoroscopy and prepped using Chloraprep as a cleansing solution and the L4-L5 interspace was palpated. Skin and subcutaneous tissues were anesthetized using lidocaine 1.5% and a 25-gauge needle. After this, an 18-gauge Touhy epidural needle was placed into the L4-L5 interspace and advanced using fluoroscopic guidance and loss of resistance to air until the epidural space was encountered. After confirmation of needle placement in the epidural space, with dye, a solution containing normal saline, 3 mL and Depo-Medrol 80 mg were incrementally injected into the lumbar epidural space. The patient tolerated the procedure well with no complications. The patient was observed in the Pain Clinic and then discharged home neurologically intact. Plan and Disposition:: Patient was discharged without incident.
[2022-08-08 11:46] VITALS: BP 115/68; PULSE 54; RESP 18; O2SAT 94
== END 2022-08-08 11:46 | disposition home or self-care (01) ==
PROVIDERS: PCP Physician Assistant; Visit Provider Nurse Anesthetist, Certified Registered
DX: M51.16 Intervertebral disc disorders with radiculopathy, lumbar region (principal)
CPT/HCPCS: 62323; J1040

== ENCOUNTER → 2022-09-06 13:22 | Outpatient (POV) | payer BC, SELFPAY ==
[2022-09-06 13:35] VITALS: BP 144/95; PULSE 91; RESP 20; BMI 25.8
--- NOTE | 2022-09-06 14:47 | EXP.PAIN.SOA ---
[facility] Pain Management SOAP Note Subjective:: Patient is a pleasant 62-year-old female who presents today for follow-up of lumbar epidural steroid injection L4-L5 on 08/08/2022. We are currently treating the patient for degenerative disc disease of lumbar spine with lumbar radiculopathy symptoms, low back pain, left leg pain, ligamentum flavum hypertrophy multilevel, right-sided sacroiliitis, chronic pain. Today she rates her pain a 4 out of 10. Patient states that she has had at least 50% improvement in her low back and leg symptoms. She states she has been able to increase her activity with decreased pain symptoms overall and feels more functional. She does state that she recently slept funny and may have done something to her right shoulder. She is complaining that this is an achy sensation with limited range of motion. It is interfering with her ability perform activities of daily living such as cooking and cleaning or even simply washing her hair due to the inability to raise her right arm. Patient denies any previous injury. Patient was recently submitted for a lumbar decompression procedure however this was denied by insurance. Patient has tried zabo-icl-luweedz medications such as Tylenol and ibuprofen along with heat and ice and topicals with minimal relief. Patient has also tried physical therapy in the past with no additional improvement. She is currently managed with gabapentin 300 mg twice a day. Patient denies any side effects from this medication. She is requesting an increase in any way possible. Her Elmo is [phone]. Its been reviewed and appropriate. Review of Systems: General: No recent weight changes, no fever, no sleep disturbances Respiratory: No cough, no shortness of air, no recurring pulmonary infections Cardiovascular/peripheral vascular: No chest pain, no palpitations, no edema, no shortness of breath Gastrointestinal: No new onset incontinence, normal bowel movements reported Genitourinary: No new onset incontinence Musculoskeletal: Right shoulder pain, chronic pain Psychiatric: [Normal mood/affect] Neurological: [Denies weakness in extremities], [denies balance issues] Objective:: Physical Exam: General: Alert and oriented x3, no acute distress, pleasant and cooperative Lungs: Respirations even and unlabored, symmetrical chest expansion Eyes: PERRL Musculoskeletal: Flexion and extension of right shoulder somewhat guarded secondary to pain, [antalgic gait noted] Neurological: Speech clear, no gross sensory deficit Assessment:: Degenerative disc disease of lumbar spine with lumbar radiculopathy symptoms, low back pain, left leg pain, ligamentum flavum hypertrophy multilevel, right-sided sacroiliitis, chronic pain syndrome, right shoulder pain Plan:: Patient is experiencing significant pain in her right shoulder with limited range of motion. I have discussed with the patient that she may benefit from right shoulder intra-articular injection. Risk and benefits were discussed with the patient and she would like to proceed forward with this plan of care. I have also discussed with the patient that in the future she might benefit from a intrathecal pain pump trial. Risk and benefits and educational handouts were given during today's visit. She would like to proceed forward with this option. I will order a psych evaluation today and if she is deemed an appropriate candidate we will plan to proceed forward with the trial in the future. I will send in a prescription of gabapentin 300 mg 3 times a day and provide a 1 month supply of this medication. Patient will be scheduled for a right shoulder intra-articular injection. Patient has been instructed to contact the clinic with any concerns before the next appointment. Dr. Benitez has reviewed this note and agrees with this plan of care. This note was dictated using voice recognition software and make contain errors or omissions. [facility] Disclaimer: The information contained in
== END | disposition home or self-care (01) ==
PROVIDERS: PCP Physician Assistant; Visit Provider Nurse Practitioner Family
DX: M51.16 Intervertebral disc disorders with radiculopathy, lumbar region (principal); M79.605 Pain in left leg; M46.1 Sacroiliitis, not elsewhere classified; G89.4 Chronic pain syndrome; M25.511 Pain in right shoulder
CPT/HCPCS: 99212; G0463

== ENCOUNTER 2022-09-22 09:57 | Day surgery (SDC) | payer BC, SELFPAY ==
[2022-09-22 10:09] VITALS: BP 123/78; PULSE 92; RESP 18; TEMP 36.4; O2SAT 99; BMI 28.2
[2022-09-22 10:12] VITALS: BP 132/77; PULSE 85; RESP 18; O2SAT 98
[2022-09-22 10:14] VITALS: BP 132/77; PULSE 85; RESP 18; O2SAT 98
[2022-09-22 10:20] VITALS: BP 137/80; PULSE 84; RESP 16; O2SAT 99
--- NOTE | 2022-09-22 10:25 | P.PCN_ITS ---
Procedure Date: 09/22/22 Time: 10:00 Anesthesiologist:: Daron Rodriguez CRNA Complications:: None Pre-procedure Diagnosis:: Osteoarthritis right shoulder. Chronic right shoulder pain Post-procedure Diagnosis:: Same. Indications for Procedure:: Patient is a very pleasant 62-year-old female comes our clinic today for a right intra-articular shoulder injection. Patient states she has had pain in the right shoulder for several years however, mild most days. Patient reports in the last 3 to 4 weeks she has had increased pain in the right shoulder joint. Patient has adequate arm strength. However, limited range of motion secondary to pain in the right shoulder joint. She rates her pain 7/10 Procedure Details:: Procedure Details: Right shoulder intra-articular injection Informed consent was obtained risk and benefits of the procedure were explained to the patient. Patient was taken to the procedure room. The right shoulder was prepped using ChloraPrep. A 25-gauge needle was used first anteriorly, laterally, and then posteriorly to inject 10 mL bupivacaine 0.25% and Depo- Medrol 40 mg. Patient tolerated procedure well with no complications. Plan and Disposition:: Patient was discharged without incident.
== END 2022-09-22 10:20 | disposition home or self-care (01) ==
PROVIDERS: PCP Physician Assistant; Visit Provider Nurse Anesthetist, Certified Registered
DX: M19.011 Primary osteoarthritis, right shoulder (principal); M25.511 Pain in right shoulder; G89.29 Other chronic pain
CPT/HCPCS: 20610; J1040

== ENCOUNTER 2022-09-30 16:07 | Emergency (ER) | payer BC, SELFPAY ==
[2022-09-30 16:08] VITALS: BP 125/80; PULSE 78; RESP 18; TEMP 36.6; O2SAT 97; BMI 28.2
--- NOTE | 2022-09-30 16:36 | XR_ITS ---
PROCEDURE INFORMATION: Exam: XR Right Shoulder Exam date and time: 09/30/2022 4:37 PM Age: 62 years old Clinical indication: Pain; Shoulder; Right; Additional info: R shoulder pain limited rom no trauma TECHNIQUE: Imaging protocol: Radiologic exam of the right shoulder. Views: 2 or more views. Total images: 3 COMPARISON: CR XR CHEST PORTABLE 08/02/2021 12:53 PM FINDINGS: Bones/joints: No evidence of acute fracture or dislocation. Degenerative changes of the glenohumeral and acromioclavicular joints. Soft tissues: Soft tissues are within normal limits. IMPRESSION: No evidence of acute fracture or dislocation.
--- NOTE | 2022-09-30 16:37 | HMH.EDGENADL ---
Discharge Plan Disposition Patient Disposition: Home, Self-Care Condition: Fair Chief Complaint: Extremity Injury, Upper Prescriptions Prescriptions: No Action BC Pain Relief 845-65 mg powder in packet 1 each PO Q4HP PRN (Reason: MIGRAINES) ipratropium-albuterol 0.5 mg-3 mg(2.5 mg base)/3 mL solution for nebulization 3 ml inhalation QID PRN (Reason: shortness of breath) Qty: 90 0RF atorvastatin 10 mg tablet 10 mg PO HS Qty: 90 3RF ergocalciferol (vitamin D2) 1,250 mcg (50,000 unit) capsule 1,250 mcg PO WEEKLY gabapentin 300 mg capsule 300 mg PO TID Qty: 90 0RF cyclobenzaprine 10 mg tablet See Rx Instructions .ROUTE .COMPLEX Rx Instructions: TAKE 1 TABLET BY MOUTH THREE TIMES A DAY NEEDED FOR MUSCLE SPASM trazodone 50 mg tablet See Rx Instructions .ROUTE .COMPLEX Rx Instructions: TAKE 1 TABLET BY MOUTH EVERYDAY AT BEDTIME permethrin 5 % cream 1 applic topical Q14D Rx Instructions: apply second treatment 14 days after first treatment if live lice remain diltiazem HCl 120 mg capsule,extended release 24hr See Rx Instructions .ROUTE .COMPLEX Rx Instructions: TAKE 1 CAPSULE BY MOUTH EVERY DAY mupirocin 2 % ointment 1 applic topical BID Referrals Follow up/Referrals: Carmen Mandel PA [Primary Care Provider] - See instructions Derek Rothman DO [Staff Physician] - See instructions Activity Restrictions/Add. Instructions Additional Instructions/Restrictions: At this time was felt you are safe to be discharged home. Please follow-up with orthopedics as soon as you are able. Clinical Impressions Clinical Impression: Limited internal rotation of glenohumeral joint of right shoulder, Right shoulder pain Discharge ED Provider: Noah Jordan General Adult HPI General Chief complaint: Extremity Injury, Upper Stated complaint: RT shoulder pain Time Seen by Provider: 09/30/22 16:24 Mode of Arrival: Ambulatory Source of Information: Patient Limitations: No Limitations Description of Symptoms (Recalled from ER Triage Doc. by RN): c/o right shoulder pain, states that one month ago she woke up with pain in her right shoulder, she fu with her pain mgn doctor who gave her to unknown shots in her shoulder, states that it felt better for about 3 hours, then the pain returned worse than before. She placed ice on her shoulder yesterday with recommendation from her pain mgn nurse. This pain has not went away, causing issues at her job. Denies any known injury History of Present Illness HPI narrative: Patient is a 62-year-old female with past medical history of chronic back pain not on opiate therapy who presents emergency department for evaluation of atraumatic right shoulder pain. Onset was subacute, over the last month. Patient has had limited active range of motion secondary to pain. When she moves her shoulder close to her body she does not experience much pain however when she significantly abducts or extends she feels significant pain and limited range of motion. This is refractory to a shot administered by her chronic pain doctor. Denies trauma. Afebrile throughout course. No other acute complaints at this time. Related Data Home Medications Medication Instructions Recorded Confirmed aspirin-caffeine 845 mg-65 mg oral 1 each PO Q4HP PRN MIGRAINES 08/09/21 09/22/22 powder packet (BC Pain Relief) ergocalciferol (vitamin D2) 1,250 1,250 mcg PO WEEKLY SUPPLIMENT 11/03/21 09/22/22 mcg (50,000 unit) capsule cyclobenzaprine 10 mg tablet See Rx Instructions .Route 01/12/22 09/22/22 .COMPLEX MUSCLES trazodone 50 mg tablet See Rx Instructions .Route 07/26/22 09/22/22 .COMPLEX SLEEP diltiazem HCl 120 mg See Rx Instructions .Route 09/22/22 09/22/22 capsule,extended release 24 hr .COMPLEX . mupirocin 2 % topical ointment 1 applic topical BID . 09/22/22 09/22/22 permethrin 5 % topical cream 1 applic topical Q14D . 09/22/22 08
--- NOTE | 2022-09-30 17:04 | PC.NURSE ---
pt resting in bed nothing needed at this time,call light at bs
[2022-09-30 17:06] VITALS: BP 121/82; PULSE 80; O2SAT 96
[2022-09-30 17:30] VITALS: BP 131/75; PULSE 71; O2SAT 95
[2022-09-30 18:01] VITALS: BP 141/78; PULSE 71
[2022-09-30 18:31] VITALS: BP 119/76; PULSE 70
[2022-09-30 18:47] VITALS: BP 119/76; PULSE 70; RESP 19; TEMP 36.7
== END 2022-09-30 18:47 | disposition home or self-care (01) ==
PROVIDERS: Emergency Provider Emergency Medicine; PCP Physician Assistant
DX: M25.511 Pain in right shoulder (principal); I25.10 Atherosclerotic heart disease of native coronary artery without angina pectoris; J44.9 Chronic obstructive pulmonary disease, unspecified; E78.5 Hyperlipidemia, unspecified; G62.9 Polyneuropathy, unspecified; F17.210 Nicotine dependence, cigarettes, uncomplicated
CPT/HCPCS: 73030; 99283

== ENCOUNTER → 2022-10-11 10:36 | Outpatient (POV) | payer BC, SELFPAY ==
[2022-10-11 10:55] VITALS: BP 121/85; PULSE 86; RESP 18; O2SAT 95; BMI 25.8
--- NOTE | 2022-10-11 10:59 | EXP.PAIN.SOA ---
[facility] Pain Management SOAP Note Subjective:: Patient is a pleasant 62-year-old female who presents today for follow-up of right shoulder intra-articular injection on 09/22/2022. We are currently treating the patient for degenerative disc disease of lumbar spine with lumbar radiculopathy symptoms, low back pain, left leg pain, ligamentum flavum hypertrophy, right-sided sacroiliitis, chronic pain, right shoulder pain. Today she rates her pain a 10 out of 10. Patient states that the injection did provide 100% relief while the numbing medication was in however immediately after a few hours her pain returned to baseline. Patient states that she did end up going to the ER and they diagnosed her with a frozen shoulder and referred her to Dr. Rothman. Patient does state that she has a follow-up appointment coming up on Sunday however she is having worsening pain today 8. Patient does describe this as a sharp achy sensation that is worse with increased activity. Patient is currently managed with gabapentin 300 mg 3 times a day. Patient states this does help some however she continues to have significant pain. Patient has also been prescribed a 12-day dose of tramadol 50 mg 4 times a day from an outside provider. Her Elmo is [phone]. Its been reviewed and appropriate. Review of Systems: General: No recent weight changes, no fever, no sleep disturbances Respiratory: No cough, no shortness of air, no recurring pulmonary infections Cardiovascular/peripheral vascular: No chest pain, no palpitations, no edema, no shortness of breath Gastrointestinal: No new onset incontinence, normal bowel movements reported Genitourinary: No new onset incontinence Musculoskeletal: Right shoulder pain Psychiatric: [Normal mood/affect] Neurological: [Denies weakness in extremities], [denies balance issues] Objective:: Physical Exam: General: Alert and oriented x3, no acute distress, pleasant and cooperative Lungs: Respirations even and unlabored, symmetrical chest expansion Eyes: PERRL Musculoskeletal: Flexion and extension of right shoulder somewhat guarded secondary to pain, [antalgic gait noted] Neurological: Speech clear, no gross sensory deficit Assessment:: Degenerative disc disease of lumbar spine with lumbar radiculopathy symptoms, low back pain, ligamentum flavum hypertrophy, right-sided sacroiliitis, right shoulder pain Plan:: Patient is experiencing significant pain in her right shoulder with limited range of motion. I have discussed with the patient that she may benefit more from a right suprascapular nerve block. Risk and benefits were explained to the patient and she would like to proceed forward with this plan of care. I will also change her gabapentin 3 times a day to 4 times a day and provide a 1 month supply of this medication. I will order the patient a compounded cream. Patient will be scheduled for a right suprascapular nerve block. Patient has been instructed to contact the clinic with any concerns before the next appointment. Dr. Benitez has reviewed this note and agrees with this plan of care. This note was dictated using voice recognition software and make contain errors or omissions. [facility] Disclaimer: The information contained in this section may have been updated after the patient was seen, as this information can be updated by other users. Medical History CAD (coronary artery disease) COPD (chronic obstructive pulmonary disease) HLD (hyperlipidemia) Neuropathy Spondylosis of lumbar spine Surgery, elective REMOVAL OF POLYP FROM [facility] Family History Other No significant family history Social History Smoking Status: Current every day smoker tobacco type: cigarettes packs per day: 1 second hand exposure: Yes alcohol intake: never substance use type: marijuana
== END | disposition home or self-care (01) ==
PROVIDERS: Visit Provider Nurse Practitioner Family
DX: M51.16 Intervertebral disc disorders with radiculopathy, lumbar region (principal); M46.1 Sacroiliitis, not elsewhere classified; M25.511 Pain in right shoulder
CPT/HCPCS: 99212; G0463

== ENCOUNTER → 2022-11-02 16:25 | Outpatient (CLI) | payer BC, SELFPAY ==
--- NOTE | 2022-11-02 16:25 | MR_ITS ---
PROCEDURE INFORMATION: Exam: MR Right Upper Extremity Joint Without Contrast; Shoulder Exam date and time: 11/02/2022 4:57 PM Age: 62 years old Clinical indication: Pain; Shoulder; Right; Additional info: Shoulder pain. Limited rom. Fell on arm. TECHNIQUE: Imaging protocol: Magnetic resonance imaging of the right upper extremity without contrast. Exam focused on the shoulder. COMPARISON: CR XR SHOULDER RT MIN 2V 09/30/2022 4:37 PM FINDINGS: Bones/joints: There is a small joint effusion. There is degenerative disease of the acromioclavicular with joint space narrowing and productive changes. Glenoid labrum: There is linear high T2 signal through the superior labrum (image 11 series 5) concerning for a small labral tear. Supraspinatus tendon: There is moderate insertional tendinopathy and partial-thickness tearing at the supraspinatus insertion (image 10 series 5). No evidence for full-thickness tear or retraction. Infraspinatus tendon: Unremarkable. No evidence of tear. Subscapularis tendon: There is mild thickening and increased T2 signal involving the subscapularis (image 13 series 3). Teres minor tendon: Unremarkable. No evidence of tear. Tendon of biceps brachii: There is moderate fluid insinuating along the proximal biceps tendon which could reflect a small amount of tendinopathy. Glenohumeral ligaments: Unremarkable. Soft tissues: Unremarkable. IMPRESSION: 1. Suspect small labral tear. 2. Partial-thickness tearing of the supraspinatus tendon. 3. Moderate subscapularis tendinopathy. 4. Mild biceps tendinopathy. 5. Moderate degenerative change of the acromioclavicular joint.
== END ==
LOC: RAD 16:25
PROVIDERS: PCP Physician Assistant; Visit Provider Orthopaedic Surgery
DX: M25.511 Pain in right shoulder (principal); M25.811 Other specified joint disorders, right shoulder
CPT/HCPCS: 73221

== ENCOUNTER → 2023-03-28 14:06 | Outpatient (POV) | payer BC, SELFPAY ==
[2023-03-28 14:35] VITALS: BP 135/95; PULSE 80; RESP 20; O2SAT 97; BMI 25.7
--- NOTE | 2023-03-28 14:49 | A.OFFVIS_ITS ---
[facility] Pain Management SOAP Note Subjective:: Patient is a pleasant 62-year-old female who presents today for follow-up. We are currently treating the patient for degenerative disc disease of lumbar spine with lumbar radiculopathy symptoms, low back pain, left leg pain, ligamentum flavum hypertrophy, right-sided sacroiliitis, chronic pain syndrome, right shoulder pain. Today she rates her pain a 1 out of 10. Patient denies any new trauma or injury since her last visit. She does state that she has not been to see our office for several months due to her having a heart attack, stroke and partial lung collapse. Patient states that he is just now getting back home and it has been a very slow process. Patient states that she does have a home health nurse coming in 1-2 times per week and physical therapy 1-2 tabs per week which she is still trying to take care of him on a daily basis and still work. Patient does state her overall back pain has been doing well and only on occasion will experience some more stiffness but it is manageable. Patient is still prescribed gabapentin 300 mg 4 times a day from our office al eva with cyclobenzaprine from her PCP. Patient denies any side effects from these medications. She does state that she typically only takes these at separate times due to the combined being too much for her. Her Elmo has been reviewed and is appropriate. Review of Systems: General: No recent weight changes, no fever, no sleep disturbances Respiratory: No cough, no shortness of air, no recurring pulmonary infections Cardiovascular/peripheral vascular: No chest pain, no palpitations, no edema, no shortness of breath Gastrointestinal: No new onset incontinence, normal bowel movements reported Genitourinary: No new onset incontinence Musculoskeletal: Low back pain Psychiatric: [Normal mood/affect] Neurological: [Denies weakness in extremities], [denies balance issues] Objective:: Physical Exam: General: Alert and oriented x3, no acute distress, pleasant and cooperative Lungs: Respirations even and unlabored, symmetrical chest expansion Eyes: PERRL Musculoskeletal: Flexion and extension of lumbar [spine] somewhat guarded secondary to pain, [antalgic gait noted] Neurological: Speech clear, no gross sensory deficit Assessment:: Degenerative disc disease of lumbar spine with lumbar radiculopathy symptoms, low back pain, left leg pain, ligamentum flavum hypertrophy, right-sided sacr oiliitis, chronic pain syndrome, right shoulder pain Plan:: Patient did state that she did not need any refills on her gabapentin currently. I have counseled the patient if this changes between now and her next visit to contact our office and I will send it in electronically. Patient has been also counseled regarding respite care however she states she did look into this and they only were allowing minimum 20 hours/week at $28 an hour. I have discussed with the patient if she needs any assistance from our office to let us know and we will do what ever we can. Patient will return to clinic in 3 months for reevaluation of symptoms and plan of care. Patient has been instructed to contact the clinic with any concerns before the next appointment. Dr. Benitez has reviewed this note and agrees with this plan of care. This note was dictated using voice recognition software and make contain errors or omissions. [facility] Disclaimer: The information contained in this section may have been updated after the patient was seen, as this information can be updated by other users. Medical History CAD (coronary artery disease) COPD (chronic obstructive pulmonary disease) HLD (hyperlipidemia) Neuropathy Spondylosis of lumbar spine Surgery, elective REMOVAL OF POLYP FROM [facility] Family History Other No significant family history Social History Smoking Status: Current every day smoker tobacco type: cigarettes packs per day: 1 second hand exposure: Yes alcohol intake: never substance use type: marijuana current occupational status: other Travel in the last 8 weeks: None household members: significant other housing: house current occupation: [employer] caffeine: Yes
== END ==
PROVIDERS: PCP Physician Assistant; Visit Provider Nurse Practitioner Family
DX: M51.16 Intervertebral disc disorders with radiculopathy, lumbar region (principal); M79.605 Pain in left leg; M46.1 Sacroiliitis, not elsewhere classified; G89.4 Chronic pain syndrome; M25.511 Pain in right shoulder
CPT/HCPCS: 99212; G0463

== ENCOUNTER 2023-12-17 07:59 | Outpatient (POV) | payer BC, SELFPAY ==
--- NOTE | 2023-12-17 09:09 | A.OFFVIS_ITS ---
[facility] Disclaimer: The information contained in this section may have been updated after the patient was seen, as this information can be updated by other users. Medical History CAD (coronary artery disease) COPD (chronic obstructive pulmonary disease) HLD (hyperlipidemia) Neuropathy Spondylosis of lumbar spine Surgery, elective REMOVAL OF POLYP FROM [facility]OCAL [facility] Family History Other No significant family history Social History Smoking Status: Current every day smoker tobacco type: cigarettes packs per day: 1 second hand exposure: Yes alcohol intake: never substance use type: marijuana current occupational status: other Travel in the last 8 weeks: None household members: significant other housing: house current occupation: [employer] caffeine: Yes PM Subjective & Objective Subjective Subjective:: Patient is a pleasant 53-year-old female who presents today for medication refill and follow-up. Today she rates her pain a 3 out of 10. Patient denies any new trauma or injury. She does state that she is starting to have more of the low back and hip pain that she had previously. Patient states in the last month it has started with more progressive. Patient does state that the pain will go to a 7 or an 8 out of 10 and it is interfering with her ability perform activities of daily living such as cooking and cleaning. Patient does state the pain is worse with prolonged positioning such as laying or sitting and that it is keeping her awake at night. Patient states she takes melatonin and her gabapentin in order to just trying to fall asleep due to the pain. Patient denies any radiating symptoms into her legs. She is prescribed gabapentin 300 mg 4 times a day and Flexeril 10 mg 3 times a day. She denies any side effects from this medication. She is requesting refills.Her Elmo has been reviewed and is appropriate. Review of Systems: General: No recent weight changes, no fever, no sleep disturbances Respiratory: No cough, no shortness of air, no recurring pulmonary infections Cardiovascular/peripheral vascular: No chest pain, no palpitations, no edema, no shortness of breath Gastrointestinal: No new onset incontinence, normal bowel movements reported Genitourinary: No new onset incontinence Musculoskeletal: Low back pain, bilateral hip pain Psychiatric: [Normal mood/affect] Neurological: [Denies weakness in extremities], [denies balance issues] Pain at rest (0-10 scale): 7 Objective Objective:: Physical Exam: General: Alert and oriented x3, no acute distress, pleasant and cooperative Lungs: Respirations even and unlabored, symmetrical chest expansion Eyes: PERRL Musculoskeletal: Flexion and extension of lumbar [spine] somewhat guarded secondary to pain, [antalgic gait noted] point tenderness along bilateral SIs with positive bilateral Alex's, Fiorella's, Gaenslen's, compression and distraction exam Neurological: Speech clear, no gross sensory deficit Has patient had previous pain injection?: No Conservative treatment options previously tried: Home exercise plan Length of treatment: Longer than 12 weeks Meds Home Medications and Allergies Home Medications ?Medication ?Instructions ?Recorded ?Confirmed ?Type aspirin-caffeine 845 mg-65 mg oral 1 each PO Q4HP PRN MIGRAINES 08/09/21 04/10/23 History powder packet (BC Pain Relief) cyclobenzaprine 10 mg tablet See Rx Instructions .Route 01/12/22 04/10/23 History .COMPLEX MUSCLES atorvastatin 10 mg tablet 10 mg PO HS Cholesterol #90 tabs 08/11/22 04/10/23 Rx mupirocin 2 % topical ointment 1 applic topical BID . 09/22/22 04/10/23 History ergocalciferol (vitamin D2) 1,250 See Rx Instructions .Route 10/11/22 04/10/23 History mcg (50,000 unit) capsule .COMPLEX SUPPLIMENT trazodone 50 mg tablet See Rx Instructions .Route 10/11/22 04/10/23 History .COMPLEX SLEEP ibuprofen 800 mg tablet 800 mg PO TID post op pain #90 tabs 10/17/22 04/10/23 Rx ipratropium 0.5 mg-albuterol 3 mg 3 ml inhalation QID PRN shortness 10/20/22 04/10/23 Rx (2.5 mg base)/3 mL nebulization of breath #90 mL soln permethrin 5 % topical cream See Rx Instructions .Route 11/22/22 04/10/23 Rx .COMPLEX #60 grams gabapentin 300 mg capsule 300 mg PO QID #120 caps 05/23/23 Rx diltiazem HCl 120 mg 120 mg PO DAILY . #90 caps 09/03/23 Rx capsule,extended release 24 hr gabapentin 300 mg capsule 300 mg PO QID #120 caps 11/12/23 Rx New Prescriptions to Start Prescriptions: Allergies Allergy/AdvReac Type Severity Reaction Status Date / Time No Known Allergies Allergy Verified 04/10/23 08:19 Assessment and Plan *Assessment and plan (1) Bilateral sacroiliitis: Status: Acute Category: Medical Code(s): M46.1 - Sacroiliitis, not elsewhere classified Plan Patient is experiencing worsening pain throughout her low back and hips with limited range of motion of her lumbar spine. Patient did have point tenderness along her bilateral SIs and a positive bilateral Alex's, Fiorella's, Gaenslen's, compression and distraction exam. I did discuss with the patient that I do believe she would benefit from repeat SI injection. Risk and benefits were discussed with patient and she would like to proceed forward with this plan of care. Patient has tried and failed conservative therapy including continued at home stretching exercise for longer than 12 weeks. Patient did previously have SI injections with her last 1 in May 2022 that did provide 90% and has lasted up until about the last month to 6 weeks. Patient did have improved function with these injections. I will refill the patient's cyclobenzaprine and gabapentin and provide a 3-month supply of this medication. Patient will be scheduled for bilateral SI injections under fluoroscopy. Patient has been instructed to contact the clinic with any concerns before the next appointment. Dr. Benitez has reviewed this note and agrees with this plan of care. This note was dictated using voice recognition software and make contain errors or omissions. All injections are used with Lidocaine or Bupivacaine and Depo Medrol.
[2023-12-17 12:29] VITALS: BP 118/87; PULSE 83; RESP 18; O2SAT 100; BMI 24.2
== END 2023-12-17 23:59 | disposition home or self-care (01) ==
PROVIDERS: PCP Internal Medicine; Visit Provider Nurse Practitioner Family
DX: M46.1 Sacroiliitis, not elsewhere classified (principal); F17.210 Nicotine dependence, cigarettes, uncomplicated; Z73.89 Other problems related to life management difficulty
CPT/HCPCS: 99212; G0463

== ENCOUNTER 2024-01-08 10:50 | Day surgery (SDC) | payer BC, SELFPAY ==
[2024-01-08 11:19] VITALS: BP 104/73; PULSE 82; RESP 16; TEMP 36.8; O2SAT 98; BMI 24.2
[2024-01-08] MEDS: BUPIVACAINE 0.25% 10ML INJ 25 MG IJ (11:22)
[2024-01-08] MEDS: LIDOCAINE 1% 5ML PF VIAL 5 ML (11:22)
[2024-01-08] MEDS: methylPREDNISolone ACETATE 80MG/ML VIAL 80 MG (11:22)
[2024-01-08 11:23] VITALS: BP 125/79; PULSE 88; RESP 18; O2SAT 97
[2024-01-08 11:27] VITALS: BP 119/68; PULSE 84; RESP 16; O2SAT 97
--- NOTE | 2024-01-08 12:30 | EXP.PAIN.PRO ---
Procedure Date: 01/08/24 Time: 11:40 Anesthesiologist:: Daron Rodriguez CRNA Complications:: None
--- NOTE | 2024-01-08 13:09 | P.PCN_ITS ---
Procedure Date: 01/08/24 Time: 11:30 Anesthesiologist:: Daron Rodriguez CRNA Complications:: None Pre-procedure Diagnosis:: Bilateral sacroiliitis Post-procedure Diagnosis:: Same Indications for Procedure:: CollectPatient is a very pleasant 63-year-old female who comes to clinic today for joint injection of cortisone and local anesthetic. She describes low lumbar back pain off the midline bilaterally as constant, dull, aching. Patient also reports difficulty transitioning from sitting to standing. Difficulty with ambulation. Difficulty with sitting. She rates her pain 8/10. Procedure Details:: Procedure: Bilateral sacroiliac joint injections under fluoroscopy Informed consent was obtained and the risks and benefits of the procedure were explained to the patient.~ The patient was taken to the procedure room and noninvasive monitors were placed including a noninvasive blood pressure cuff and pulse oximeter.~ The patient was placed prone on the procedure table. Both hips were cleansed using Betadine as a cleansing solution. C-arm fluoroscopy was used to view the right sacroiliac joint.~ The skin and subcutaneous tissues were anesthetized using lidocaine 1.5% and a 25-gauge needle.~ After this, a 22-gauge spinal needle was inserted under fluoroscopic guidance into the inferior aspect of the right sacroiliac joint.~ Omnipaque dye was injected and good spread was seen throughout the joint.~ After this, approximately 5 mL of bupivacaine, 0.25% and Depo-Medrol, 40 mg was incrementally injected into the right sacroiliac joint. We then moved to the left sacroiliac joint.~ The skin and subcutaneous tissues were anesthetized using lidocaine 1.5% and a 25-gauge needle.~ After this, a 22- gauge spinal needle was inserted under fluoroscopic guidance into the inferior aspect of the left sacroiliac joint.~ Omnipaque dye was injected and good spread was seen throughout the joint. After this, approximately 5 mL of bupivacaine, 0.25% and Depo-Medrol, 40 mg was incrementally injected into the left sacroiliac joint.~ The patient tolerated the procedure well with no complications. The patient was observed in the Pain Clinic and then was discharged home neurologically intact. Plan and Disposition:: Patient was discharged without incident.
== END 2024-01-08 11:27 | disposition home or self-care (01) ==
LOC: SC.PAINP 10:51
PROVIDERS: PCP Internal Medicine; Visit Provider Nurse Anesthetist, Certified Registered
DX: M46.1 Sacroiliitis, not elsewhere classified (principal)
CPT/HCPCS: 27096; G0260; J1010

== ENCOUNTER 2024-06-10 14:07 | Outpatient (CLI) | payer MEDICAID, SELFPAY ==
[2024-06-10 18:38] LABS: Basophils # 0.1 K/mm3 (0-0.2); Basophils % 0.6 % (0.1-2.0); Eosinophils # 0.1 Kmm3 (0.0-0.4); Eosinophils % 0.6 % (0.1-12.0); Hematocrit 46.7 % (37.0-47.0); Hemoglobin 15.4 g/dL (12.2-16.2); Lymphocytes # 2.6 K/mm3 (0.7-4.5); Lymphocytes % 29.9 % (10-50); Mean Platelet Volume 10.8 fl (7.4-10.4); Monocytes # 0.6 K/mm3 (0.1-1.0); Monocytes % 6.8 % (1.7-9.3); Neutrophils # 5.5 K/mm3 (1.8-7.8); Neutrophils % 61.8 % (37.0-80.0); Nucleated Red Blood Cells # 0 10^3/uL; Nucleated Red Blood Cells % 0 %; Platelet Count 305 K/mm3 (142-424); Red Blood Count 4.67 M/mm3 (4.20-5.40); Red Cell Distribution Width 11.9 % (11.5-17.5); Red Cell Distribution Width-SD 43.9 fL; White Blood Count 8.8 K/mm3 (4.8-10.8)
[2024-06-10 19:57] LABS: Alanine Aminotransferase 17 U/L (12-78); Albumin Level 3.9 g/dl (3.5-5.0); Albumin/Globulin Ratio 1.6 (1.1-1.8); Alkaline Phosphatase 97 U/L (38-126); Anion Gap 8.7 mEq/L (5-15); Aspartate Amino Transferase 20 U/L (14-36); Bilirubin,Total 0.4 mg/dl (0.2-1.3); Blood Urea Nitrogen 9 mg/dl (7-17); Calcium 8.8 mg/dl (8.4-10.2); Carbon Dioxide 28 mmol/L (22.0-30.0); Chloride 108 mmol/L (98-107); Chol/HDL Ratio 4.9 (1-3.5); Cholesterol 222 mg/dl (140-200); Estimated Glomerular Filt Rate 101 ml/min (>60); GFR (African American) 122 ML/MIN (>60); Globulin 2.4 g/dL (1.3-3.2); Glucose 102 mg/dl (74-100); HDL Cholesterol 45 mg/dl (40-60); Potassium 3.7 mmoL/L (3.5-5.1); Sodium 141 mmol/L (136-145); Total Protein,Serum 6.3 g/dl (6.3-8.2); Triglycerides 257 mg/dl (30-150); VLDL Cholesterol 51 mg/dL (0-40)
[2024-06-10 20:05] LABS: 25-OH Vitamin D, Total 20.2 ng/mL (30-100)
[2024-06-10 20:09] LABS: Direct LDL Cholesterol 111.16 mg/dL (100-129)
[2024-06-10 20:31] LABS: Thyroid Stimulating Hormone 0.87 uIU/mL (0.465-4.68)
[2024-06-10 21:33] LABS: HIV Combo NEGATIVE (Negative)
[2024-06-10 21:40] LABS: Hepatitis C Ab Qual. W/ RFX NEGATIVE (Negative)
== END 2024-06-10 23:59 | disposition home or self-care (01) ==
LOC: LAB.DROPOF 06-12 11:30
PROVIDERS: PCP Nurse Practitioner Family; Visit Provider Nurse Practitioner Family
DX: M46.1 Sacroiliitis, not elsewhere classified (principal); G62.9 Polyneuropathy, unspecified; Z11.59 Encounter for screening for other viral diseases; Z11.4 Encounter for screening for human immunodeficiency virus [HIV]
CPT/HCPCS: 80053; 80061; 82306; 84443; 85025; 86803; 87389

== ENCOUNTER 2024-06-25 10:17 | Outpatient (CLI) | payer MEDICAID, SELFPAY ==
--- NOTE | 2024-06-25 11:00 | MM_ITS ---
PROCEDURE INFORMATION: Exam: MG Bilateral Screening 3D Mammography Exam date and time: 06/25/2024 10:29 AM Age: 64 years old Clinical indication: Screening mammogram. Screening family history TECHNIQUE: Imaging protocol: Bilateral Screening tomosynthesis and 2D mammography including computer-aided detection (CAD) when performed. COMPARISON: 1. MG MM DIG SCREENING MAMM BI W/CAD 11/18/2020 3:57 PM 2. MG MM DIG SCREENING MAMM BI W/CAD 09/16/2019 9:12 AM FINDINGS: MAMMOGRAPHY: Breast composition: There are scattered areas of fibroglandular density. Mass: None. Architectural distortion: No new or suspicious architectural distortion. Calcifications: No new or suspicious calcifications are present Asymmetric density: No new or suspicious asymmetric density is present Skin thickening: None. Axillary adenopathy: None. IMPRESSION: No mammographic evidence of malignancy. Recommend annual screening mammography unless otherwise clinically indicated. ASSESSMENT: BI-RADS category 1: Negative.
--- NOTE | 2024-06-25 14:51 | XR_ITS ---
FINAL REPORT CLINICAL HISTORY: smoker, cough FINDINGS: 2 views of the chest were obtained . The heart is normal in size. The mediastinum is within normal limits. There is scarring or atelectasis in the right perihilar region. There is no pneumothorax. Osseous structures demonstrate mild thoracic scoliosis convex to the right. IMPRESSION: Scarring or atelectasis in the right perihilar region. Reviewed, Interpreted and Dictated by Mau Crowley MD Transcribed by Mamta Hatch Authenticated and [facility]
== END 2024-06-25 23:59 | disposition home or self-care (01) ==
PROVIDERS: PCP Nurse Practitioner Family; Visit Provider Nurse Practitioner Family
DX: Z12.31 Encounter for screening mammogram for malignant neoplasm of breast (principal); I25.10 Atherosclerotic heart disease of native coronary artery without angina pectoris; R91.8 Other nonspecific abnormal finding of lung field; Z72.0 Tobacco use; R92.313 Mammographic fatty tissue density, bilateral breasts
CPT/HCPCS: 71046; 77063; 77067

== ENCOUNTER 2024-07-24 10:11 | Outpatient (CLI) | payer MEDICAID, SELFPAY ==
--- OUTSIDE RECORDS SUMMARY | 2024-07-24 10:34 | XMS_ITS | Clinical Summary ---
Author Organization Healthcare Address [address] [place] [address] Care Team Providers Care Chemistry Professor Name Role Phone Carmen Mandel Primary Care Provider [phone] Family History Medical History Relation Name Comments Heart attack Father Other cancer Mother Other cancer Other 1 Heart attack Other 2 Relation Name Status Comments Father Mother Other 1 Other 2 Social History Tobacco Use Types Packs/Day Years Used Date Smoking Tobacco: Every Day Comments Unknown Sex and Gender Information Value Date Recorded Sex Assigned at Not on file Legal Sex Female 7:57 PM EDT Gender Identity Not on file Sexual Orientation Not on file Last Filed Vital Signs Vital Sign Reading Time Taken Comments Blood Pressure 112/70 11/18/2019 10:35 AM EDT Pulse - - Temperature - - Respiratory Rate - - Oxygen Saturation - - Inhaled Oxygen Concentration - - Weight 75.3 kg (165 lb 15.8 oz) 020 10:35 AM EDT Height 167.6 cm (5' 6 ) 11/18/2019 10:3 5 AM EDT Body Mass Index 26.79 11/18/2019 10:35 AM EDT Plan of Treatment Health Maintenance Due Date Last Done Comments [facility]-Depression Screening 1961 [facility]-/Child/Adol SDOH Screenings 1961 [facility]- SDOH Screenings 1979 [facility]-Adult SDOH Screenings 1979 [facility]-DTaP,Tdap,and Td Vaccine s (1 - Tdap) 1980 [facility]-Pap Smear 1982 [facility]-Cervical Cancer Screening 1991 [facility]-HPV/Cotest 1991 CT Colonography 2006 Colonoscopy 2006 FIT-DNA 2006 FIT 2006 FOBT 2006 Sigmoidoscopy 2006 [facility]-Colorectal Cancer Screening 2006 [facility]-Pneumococcal Vaccine: 50 + Years (1 of 1 - PCV) 2011 [facility]-Zoster Vaccines (1 of 2) 2011 [id number] Vaccine (1 - 20 24-25 season) 2023 [facility]-Influenza Vaccine (Seas[place] n Ended) 2024 [facility]-RSV Vaccine: 60+ Years o r (1 - 1-dose 75+ series) 2036 [facility]-Breast Cancer Screening Discontinued 09/23/2012 HPV Vaccines Aged Out No longer eligi ble based on patient's age to complete this topic [facility]-HIB Vaccines Aged Out No longer e ligible based on patient's age to complete this topic [facility]-Hepatitis A Vaccines Aged Out No longer eligible based on patient's age to complete this topic [facility]-IPV Vaccines Aged Out No longer e ligible based on patient's age to complete this topic [facility]-Rotavirus Vaccines Aged Out No lo nger eligible based on patient's age to complete this topic Insurance [employer] Care Teams Chemistry Professor Relationship Specialty Start Date End Date Carmen Mandel PA [address] [place] [address] PCP - General 06/25/20
--- NOTE | 2024-07-24 11:00 | CT_ITS ---
FINAL REPORT TECHNIQUE: Axial images were obtained through the chest without contrast. Multiplanar reconstructions in the sagittal and coronal plane were subsequently performed. This study was performed with techniques to keep radiation doses as low as reasonably achievable (ALARA). Individualized dose reduction techniques using automated exposure control or adjustment of mA and/or kV according to the patient's size were employed. CLINICAL HISTORY: abnl test, tobacco use pt had cxr x 1 month ago cough and smoker COMPARISON: None FINDINGS: CT CHEST WITHOUT CONTRAST: Dense vascular calcifications are present in the aortic arch. No mediastinal or hilar adenopathy is noted. There are advanced changes of centrilobular emphysema. Scar is noted at the lung bases. No pulmonary masses identified. There is a small fat-containing right posterior diaphragmatic hernia incidentally noted. No pericardial effusion is present. No pulmonary effusions are present. IMPRESSION: Advanced changes of centrilobular emphysema are present, without focal nodule or mass identified. No mediastinal or hilar adenopathy. Reviewed, Interpreted and Dictated by Mau Crowley MD Transcribed by Brandi Jameson Authenticated and [facility]
== END 2024-07-24 23:59 | disposition home or self-care (01) ==
LOC: RAD 10:11
PROVIDERS: PCP Nurse Practitioner Family; Visit Provider Physician Assistant
DX: J43.2 Centrilobular emphysema (principal); K44.9 Diaphragmatic hernia without obstruction or gangrene; R05.9 Cough, unspecified; Z72.0 Tobacco use
CPT/HCPCS: 71250

== ENCOUNTER 2024-07-31 09:51 | Outpatient (POV) | payer MEDICAID, SELFPAY ==
--- OUTSIDE RECORDS SUMMARY | 2024-07-31 09:57 | XMS_ITS | Clinical Summary ---
Author Organization Healthcare Address [address] [place] [address] Care Team Providers Care Cathode Builder Name Role Phone Carmen Mandel Primary Care Provider [phone] Family History Medical History Relation Name Comments [...] 2011 [facility]-Zoster Vaccines (1 of 2) 2011 [id number] Vaccine (1 - 20 24-25 season) 2023 [...] complete this topic Insurance [employer] Care Teams Cathode Builder Relationship Specialty Start Date End Date Carmen Mandel PA [address] [place] [address] PCP - General 06/25/20
--- NOTE | 2024-07-31 10:22 | A.OFFVIS_ITS ---
[facility] Disclaimer: The information contained in this section may have been updated after the patient was seen, as this information can be updated by other users. Medical History (Updated 06/25/24 @ 14:42 by DYLON Gutierrez) Surgery, elective COPD (chronic obstructive pulmonary disease) CAD (coronary artery disease) HLD (hyperlipidemia) Neuropathy Spondylosis of lumbar spine Family History Other No significant family history Social History Smoking Status: Current every day smoker tobacco type: cigarettes packs per day: 1 second hand exposure: Yes alcohol intake: never substance use type: marijuana current occupational status: retired Travel in the last 8 weeks?: None household members: significant other housing: house current occupation: [employer] caffeine: Yes PM Subjective & Objective Subjective Subjective:: Patient is a pleasant 64-year-old female who presents today for follow-up of bilateral sacroiliitis injections on 01/08/2024. Patient states that she had nearly 90 to 100% relief with these and that it did kick in pretty much immediately. Patient states that she has done well since then. She does rate her pain today is 0 out of 10. She states the only thing she wants to make mention is she will occasionally have burning tingling sensation more on the left side. Patient states that it is not constant and it is very random when it does occur. She states that normally gets every couple of days and might last about 15 minutes. Patient did not know whether or not if she needed another injection. Patient is currently managed with gabapentin 300 mg 4 times a day and Flexeril 100 mg 3 times a day. She denies any side effects but would like refills. Her Elmo has been reviewed and is appropriate. Review of Systems: General: No recent weight changes, no fever, no sleep disturbances Respiratory: No cough, no shortness of air, no recurring pulmonary infections Cardiovascular/peripheral vascular: No chest pain, no palpitations, no edema, no shortness of breath Gastrointestinal: No new onset incontinence, normal bowel movements reported Genitourinary: No new onset incontinence Musculoskeletal: Left-sided low back numbness Psychiatric: [Normal mood/affect] Neurological: [Denies weakness in extremities], [denies balance issues] Pain at rest (0-10 scale): 0 Objective Objective:: Physical Exam: General: Alert and oriented x3, no acute distress, pleasant and cooperative Lungs: Respirations even and unlabored, symmetrical chest expansion Eyes: PERRL Musculoskeletal: Flexion and extension of lumbar [spine] somewhat guarded secondary to pain, [antalgic gait noted] Neurological: Speech clear, no gross sensory deficit Has patient had previous pain injection?: Yes Percent improvement in pain since last injection: 90-100% Conservative treatment options previously tried: Home exercise plan Length of treatment: Longer than 6 weeks Meds Home Medications and Allergies Home Medications ?Medication ?Instructions ?Recorded ?Confirmed ?Type aspirin-caffeine 845 mg-65 mg oral 1 each PO Q4HP PRN MIGRAINES 08/09/21 06/25/24 History powder packet (BC Pain Relief) mupirocin 2 % topical ointment 1 applic topical BID . 09/22/22 06/25/24 History gabapentin 300 mg capsule 300 mg PO QID #120 caps 05/1306/25/24 Rx cyclobenzaprine 10 mg tablet 10 mg PO TID #90 tabs 06/0506/25/24 Rx cholecalciferol (vitamin D3) 1,250 1,250 mcg PO QWEEK #7 caps 06/16/24 06/25/24 Rx mcg (50,000 unit) capsule cholecalciferol (vitamin D3) 50 50 mcg PO DAILY #30 ca ps 06/16/24 06/25/24 Rx mcg (2,000 unit) capsule atorvastatin 20 mg tablet 20 mg PO DAILY #90 tabs 06/1206/25/24 Rx New Prescriptions to Start Prescriptions: Allergies Allergy/AdvReac Type Severity Reaction Status Date / Time No Known Allergies Allergy Verified 06/25/24 13:58 Assessment and Plan *Assessment and plan (1) Degenerative disc disease, lumbar: Status: Acute Category: Medical Code(s): M51.369 - Other intervertebral disc degeneration, lumbar region without mention of lumbar back pain or lower extremity pain (2) Bilateral sacroiliitis: Status: Acute Category: Medical Code(s): M46.1 - Sacroiliitis, not elsewhere classified Plan I did discuss with the patient due to the fact that it is not more continuous with the numbness and tingling I would like to see about trying lidocaine patches as well as reorder the compounded cream. Patient previously was not covered with her last insurance but has changed. Patient agrees with this plan of care. I will also send in a 3-month supply of her Flexeril and gabapentin. Patient will return to clinic in 6 weeks for reevaluation of symptoms and plan of care. I did discuss with her if it does start to increase in severity and becomes more continuous to please call us and we will move her appointment up to see about additional injection therapy. Patient agrees with this. Patient has been instructed to contact the clinic with any concerns before the next appointment. Dr. Benitez has reviewed this note and agrees with this plan of care. This note was dictated using voice recognition software and make contain errors or omissions. All injections are used with Lidocaine, Bupivacaine and dexamethasone. Occasionally urine drug screen is needed to verify patient's compliance with our office pain contract. This is ordered based off specific treatments related to chronic pain with the potential to abuse certain medications.
[2024-07-31 11:08] VITALS: BP 116/71; PULSE 83; RESP 14; O2SAT 97; BMI 24.2
== END 2024-07-31 23:59 | disposition home or self-care (01) ==
PROVIDERS: PCP Nurse Practitioner Family; Visit Provider Nurse Practitioner Family
DX: M51.360 Other intervertebral disc degeneration, lumbar region with discogenic back pain only (principal); M46.1 Sacroiliitis, not elsewhere classified; Z79.899 Other long term (current) drug therapy
CPT/HCPCS: 99212; G0463

== ENCOUNTER 2024-09-08 12:10 | Day surgery (SDC) | payer MEDICAID, SELFPAY ==
[2024-09-04 13:37] VITALS: BMI 24.2
--- NOTE | 2024-09-08 12:01 | EXP.HP ---
History of Present Illness *Admission Date: 09/08/24 *Reason for visit:: History of adenomatous colon polyp *History of present illness: Mrs. Cherry is a 64-year-old female who is here for screening/surveillance colonoscopy. She did have an adenomatous polyp removed in November 2019. The examination is deemed medically necessary for surveillance colonoscopy. The patient has been seen, interviewed and examined prior to the procedure by both myself and the anesthesia provider. [facility] Disclaimer: The information contained in this section may have been updated after the patient was seen, as this information can be updated by other users. Medical History Cervical cancer Surgery, elective COPD (chronic obstructive pulmonary disease) CAD (coronary artery disease) HLD (hyperlipidemia) Neuropathy Spondylosis of lumbar spine Surgical History History of section History of tonsillectomy History of right heart catheterization (RHC) History of hysterectomy Family History Other Family history of cancer Family history of diabetes mellitus type II Family history of myocardial infarction Family history of stroke Social History Smoking Status: Current every day smoker tobacco type: cigarettes packs per day: 1 second hand exposure: Yes alcohol intake: never substance use type: marijuana current occupational status: other Travel in the last 8 weeks?: None household members: significant other housing: house current occupation: [employer] caffeine: Yes Have you lived/traveled outside US in past 30 days?: No Contact w/someone who lives/traveled outside US past 30 days?: No Exposure to someone with infectious disease in past 14 days?: No Do you have a fever (greater than 100.4 F or 38 C)?: No Have you tested positive for COVID-19?: No Exposed to someone with COVID-19 in past 14 days?: No Do you have a sore throat?: No Do you have a cough?: No Do you have any weakness?: No Do you have any diarrhea?: No Are you experiencing any unusual bleeding?: No Do you have any muscle aches/pain?: No Do you have any abdominal pain?: No Are you experiencing loss of taste or smell?: No Other Medical History Have you received the Flu Vaccine for this season: No Have you received the Pneumonia Vaccine: No Review of Systems Review of Systems Review of systems (narrative): Negative *Cardiovascular Comments: Negative *Gastrointestinal Comments: Negative *Genitourinary Comments: Negative *Musculoskeletal Comments: Negative *Neurologic Comments: Negative Meds Home Medications and Allergies Home Medications ?Medication ?Instructions ?Recorded ?Confirmed ?Type aspirin-caffeine 845 mg-65 mg oral 1 each PO Q4HP PRN MIGRAINES 08/09/21 09/08/24 History powder packet (BC Pain Relief) mupirocin 2 % topical ointment 1 applic topical BID . 09/22/22 09/08/24 History cholecalciferol (vitamin D3) 50 50 mcg PO DAILY #30 caps 06/16/24 09/08/24 Rx mcg (2,000 unit) capsule atorvastatin 20 mg tablet 20 mg PO DAILY #90 tabs 06/25/24 09/08/24 Rx cyclobenzaprine 10 mg tablet 10 mg PO TID #90 tabs 07/31/24 09/08/24 Rx gabapentin 300 mg capsule 300 mg PO QID #120 caps 07/31/24 09/08/24 Rx lidocaine 5 % topical patch 1 patch topical DAILY #30 ea 07/31/24 09/08/24 Rx sodium,potassium,mag sulfates 17.5 See Rx Instructions PO .COMPLEX 08/26/24 Rx gram-3.13 gram-1.6 gram oral soln #354 mL (Suprep Bowel Prep Kit) peg 3350-electrolytes 236 240 ml PO Q10M colonscopy #4,000 mL 08/29/24 Rx gram-22.74 gram-6.74 gram-5.86 gram solution (Golytely) trazodone 50 mg tablet 50 mg PO HS #30 tabs 09/05/24 09/08/24 Rx New Prescriptions to Start Prescriptions: Allergies Allergy/AdvReac Type Severity Reaction Status Date / Time No Known Allergies Allergy Verified 09/08/24 13:10 Exam *Routine HEENT Exam Head: Present normocephalic Eye: Present EOMI and PERRL ENT: Present mucous membranes moist *Routine Neck Exam Neck: Present supple *Routine Respiratory Exam Respiratory: Present CTA bilaterally *Routine Cardiovascular Exam Cardiovascular: Present RRR *Routine Abdominal Exam Abdominal: Present soft and normoactive bowel sounds; Absent tenderness *Routine Rectal Exam Rectal:: deferred *Routine Genitalia Exam Genitalia:: deferred *Routine Extremities Exam Extremities: Absent cyanosis, clubbing or edema *Routine Skin Exam Skin: Present warm; Absent rash *Routine Neurological Exam Neurological: Present alert and oriented X3 Assessment and Plan *Assessment and plan (1) Personal history of adenomatous and serrated colon polyps: Status: Acute Category: Medical Code(s): Z86.0101 - Personal history of adenomatous and serrated colon polyps (2) Colon cancer screening: Status: Acute Category: Medical Code(s): Z12.11 - Encounter for screening for malignant neoplasm of colon Plan A/P: 1. Personal history of adenomatous colon polyp/screening is the preprocedural diagnosis. The patient will be anesthetized/sedated using MAC sedation. The patient has been seen and examined. Cardiac and lung assessment prior to the examination is stable. Proceed with planned surveillance colonoscopy.
[2024-09-08 13:12] VITALS: BP 145/81; PULSE 81; RESP 18; TEMP 36.7; O2SAT 96
[2024-09-08] MEDS: LACTATED RINGERS 1000ML 1,000 ML 50 ML IV (13:16)
--- NOTE | 2024-09-08 14:12 | P.PNANES_ITS ---
[facility] Disclaimer: The information contained in this section may have been updated after the patient was seen, as this information can be updated by other users. Medical History Cervical cancer Surgery, elective COPD (chronic obstructive pulmonary disease) CAD (coronary artery disease) HLD (hyperlipidemia) Neuropathy Spondylosis of lumbar spine Surgical History History of section History of tonsillectomy History of right heart catheterization (RHC) History of hysterectomy Family History Other Family history of cancer Family history of diabetes mellitus type II Family history of myocardial infarction Family history of stroke Social History Smoking Status: Current every day smoker tobacco type: cigarettes packs per day: 1 second hand exposure: Yes alcohol intake: never substance use type: marijuana current occupational status: other Travel in the last 8 weeks?: None household members: significant other housing: house current occupation: [employer] caffeine: Yes Have you lived/traveled outside US in past 30 days?: No Contact w/someone who lives/traveled outside US past 30 days?: No Exposure to someone with infectious disease in past 14 days?: No Do you have a fever (greater than 100.4 F or 38 C)?: No Have you tested positive for COVID-19?: No Exposed to someone with COVID-19 in past 14 days?: No Do you have a sore throat?: No Do you have a cough?: No Do you have any weakness?: No Do you have any diarrhea?: No Are you experiencing any unusual bleeding?: No Do you have any muscle aches/pain?: No Do you have any abdominal pain?: No Are you experiencing loss of taste or smell?: No [facility] Anesthesia Checklist Patient Identification Patient Identification: Arm Band and Family Structural Data Admitted From: Home Planned Operative Procedure/s: Colonoscopy Consent for Planned Operative Procedure(s) Verified: Yes Verified Documents: Surgical Consent and History and Physical NPO Status Verified Time NPO: 00:00 Additional verifications Patient : No Anesthesia Reactions: No Hx Blood Transfusions: No Blood Transfusion Reaction: No Cephalosporin Allergy: No Previous Colonoscopy: Yes Airway Assessment Mallampati Score:: Class II C-Spine Mobility Assessed: Yes Dentition: Good Dentition Neurological Assessment Level of Consciousness: Awake, Alert, Appropriate and Follows Commands Hx Seizures: No Numbness or tingling in extremities: No Anesthesia Plan Anesthesia Risk discussed: Yes ASA Class: III Anesthesia Type: MAC Preoperative Comments Pre-Operative Comments: Stents X2.
--- NOTE | 2024-09-08 14:59 | HMH.PROCNOTE ---
[facility] Procedure Note Date: 09/08/24 Time: 15:29 Procedure Note:: Colonoscopy Procedure Report: Colonoscopy with cold snare polypectomy Endoscopist: Shant Lepe II, MD Referring physician: BARON Mane Date of Procedure: September 08, 2024 Equipment: Olympus [id number] adult colonoscope Sedation: MAC sedation Indication: Mrs. Cherry is a 64-year-old female who is here for follow-up surveillance colonoscopy secondary to a personal history of an adenomatous colon polyp. The patient did have a colonoscopy (Chip Sow M.D.) in November 2019 and had a lobulated complex pedunculated polyp at 20 cm (tubular adenoma) removed. He did state that with her limited bowel preparation and spasticity/lack of relaxation and nature of polyp, she would need repeat surveillance in 1 year. The patient reports no abdominal pain, weight loss, change in her bowel habits or rectal bleeding. The patient reports no family history of colon cancer. Procedure: Prior to the procedure, a history and physical exam was performed, and patient's medications and allergies were reviewed. The risks, benefits and alternatives of the sedation and procedure were discussed with the patient. All questions were answered and informed consent was obtained. The patient was brought to the procedure room. Patient identification and proposed procedure were verified by the physician and the nurse. The patient was placed in a left lateral decubitus position and the scope was passed under direct vision. Throughout the procedure, the patient's blood pressure, pulse, and oxygen saturations were monitored continuously. The colonoscopy was accomplished without difficulty. The patient tolerated the procedure well. Findings: On digital rectal examination there was normal rectal tone. There were no external hemorrhoids. The colonoscope was introduced through the anal canal to the rectum and advanced to the cecum. The ileocecal valve and appendiceal orifice were identified. The scope was advanced a short distance into the ileum which appeared grossly normal. The scope was then withdrawn into the colon. There were 2 diminutive cecal polyps (3 and 4 mm) which were both removed via cold snare polypectomy. There were scattered diverticuli throughout the colon but more predominantly in the descending and sigmoid colon (LEFT colon). The rectum itself was normal. Upon retroflexion within the rectum there were grade 1-2 internal hemorrhoids. The preparation was excellent throughout with Bramwell Preparation Score of 9. The cecal time was 12 minutes. Impression: 1. Diminutive cecal polyps x 2 2. Extensive pandiverticulosis 3. Grade 1-2 internal hemorrhoids Plan: I will follow-up the polyp histology and recommend repeat surveillance colonoscopy again in 7 years if the polyps are adenomatous. I would encourage bulking psyllium fiber supplementation on a long-term daily maintenance basis.
[2024-09-08 15:32] VITALS: BP 101/54; PULSE 84; RESP 20; TEMP 36.6; O2SAT 100
[2024-09-08 15:42] VITALS: BP 111/70; PULSE 73; RESP 20; TEMP 36.6; O2SAT 100
[2024-09-08 15:52] VITALS: BP 126/87; PULSE 71; RESP 20; TEMP 36.6; O2SAT 100
[2024-09-08 16:02] VITALS: BP 155/69; PULSE 71; RESP 20; TEMP 36.6; O2SAT 100
== END 2024-09-08 16:15 | disposition home or self-care (01) ==
PROVIDERS: PCP Nurse Practitioner Family; Visit Provider Internal Medicine Gastroenterology
PROC: 0DJD8ZZ Inspection of Lower Intestinal Tract, Via Natural or Artificial Opening Endoscopic (ICD-10-PCS; CPT 45378; principal; 2024-09-08 14:00)
DX: Z12.11 Encounter for screening for malignant neoplasm of colon (principal); D12.0 Benign neoplasm of cecum; K57.30 Diverticulosis of large intestine without perforation or abscess without bleeding; K64.0 First degree hemorrhoids; K64.1 Second degree hemorrhoids; I25.10 Atherosclerotic heart disease of native coronary artery without angina pectoris; J44.9 Chronic obstructive pulmonary disease, unspecified; E78.5 Hyperlipidemia, unspecified; F17.210 Nicotine dependence, cigarettes, uncomplicated; Z86.0101 Personal history of adenomatous and serrated colon polyps; Z79.899 Other long term (current) drug therapy
CPT/HCPCS: 45385; J2003; J2704; J7120

== ENCOUNTER 2024-09-11 09:19 | Outpatient (POV) | payer MEDICAID, SELFPAY ==
--- OUTSIDE RECORDS SUMMARY | 2024-09-11 09:22 | XMS_ITS | Clinical Summary ---
Author Organization Healthcare Address [address] [place] [address] Care Team Providers Care Manager Pacu Name Role Phone Carmen Mandel Primary Care Provider [phone] Family History Medical History Relation Name Comments [...] 2011 UKY-Zoster Vaccines (1 of 2) 2011 [id number] Vaccine (1 - 20 24-25 season) 2023 UKY-Influenza Vaccine (#1) 2024 UKY-RSV Vaccine: 60+ Years o r [...] patient's age to complete this topic Insurance [facility] Care Teams Manager Pacu Relationship Specialty Start Date End Date Carmen Mandel PA [address] [place] [address] PCP - General 06/25/20
--- OUTSIDE RECORDS SUMMARY | 2024-09-11 09:22 | XMS_ITS | Clinical Summary ---
Author Organization [facility] Address [address] [place] [address] Care Team Providers Care Dietist Name Role Phone Steven Fuller MD Primary Care Provider [phone] Allergies Active Allergy Reactions Criticality Noted Date Comments Ibuprofen Other (See Comments) 05/22/2012 Give me urinary tract infections Medications clopidogrel (PLAVIX) 75 MG tablet TAKE 1 TABLET EVERY DAY 90 tablet 3 11/05/2015 Active escitalopram (LEXAPRO) 20 MG tablet Take 20 mg by mouth Daily. Active cyclobenzaprine (FLEXERIL) 5 MG tablet Take 5 mg by mouth 3 (Three) Times a Day As Needed for Muscle Spasms. Active atorvastatin (LIPITOR) 40 MG tablet Take 40 mg by mouth Daily. Active isosorbide mononitrate (IMDUR) 30 MG 24 hr tablet TAKE 1 TABLET BY MOUTH DAILY. 30 tablet 7 11/30/2016 Active Active Problems Problem Noted Date Diagnosed Date Coronary artery disease of n ative artery of [place] heart with stable angina pectoris 05/24/2016 Tobacco abuse 05/24/2016 Dyslipidemia 05/24/2016 Spondylolisthesis, congenital 11/14/2012 Neuralgia, neuritis, and radiculitis, unspecifie d 11/14/2012 Anxiety 09/18/2012 Lumbar radiculopathy 07/18/2012 Social History Tobacco Use Types Packs/Day Years Used Date Smoking Tobacco: Every Day Cigarettes Smokeless Tobacco: Never Alcohol Use Standard Drinks/Week Comments Yes 0 (1 standard drink = 0.6 oz pur e alcohol) seldom Abuse Screen Answer Date Recorded Unsafe at Home or Work/School Not on file Feels Threatened by Someone? Not on file 12/2022 Does Anyone Keep You from Co ntacting Others or Doint Things Outside the Home? Not on file 11/22/2022 Physical Sign of Abuse Present Not on file 1 Housing Stability Answer Date Recorded Current Living Arrangements Not on file 11/12 Potentially Unsafe Housing Conditions Not on liliam e 11/22/2022 Family and Community Support Answer Scot e Recorded Help with Day-to-Day Activities Not on file 11/22/2022 Lonely or Isolated Not on file 11/22/2022 Employment Answer Date Recorded Do you want help finding or keeping work or a aleshia b? Not on file 11/22/2022 Disabilities Answer Date Recorded Concentrating, Remembering, or Making Decisions Difficulty Not on file 11/22/2022 Doing Errands Independently Difficulty Not on fi le 11/22/2022 Education Answer Date Recorded Help with school or training? Not on file Preferred Language Not on file 11/22/2022 Comments No Sex and Gender Information Value Date Recorded Sex Assigned at Not on file Legal Sex Female 2:14 PM EDT Gender Identity Not on file Sexual Orientation Not on file Last Filed Vital Signs Vital Sign Reading Time Taken Comments Blood Pressure 128/84 06/27/2018 8:40 AM EDT Pulse 72 06/27/2018 8:40 AM EDT Temperature 37.1 C (98.7 F) 06/27/2018 8:40 AM EDT Respiratory Rate 14 06/27/2018 8:40 AM EDT Oxygen Saturation 98% 06/27/2018 8:40 AM EDT Inhaled Oxygen Concentration - - Weight 75.8 kg (167 lb) 06/27/2018 8:40 AM EDT Height 167.6 cm (5' 6 ) 06/27/2018 8:40 AM EDT Body Mass Index 26.95 06/27/2018 8:40 AM EDT Plan of Treatment Health Maintenance Due Date Last Done Comments Annual Gynecologic Pelvic and Breast Exam 1961 TDAP/TD VACCINES (1 - Tdap) 1980 MAMMOGRAM 2001 COLOGUARD 2006 COLON CANCER SCREENING 5 YEAR SIGMOIDOSCOPY 2006 COLONOSCOPY [address] CANCER SCREENING [address] CT COLONOGRAPHY 2006 FECAL OCCULT BLOOD TEST 2006 FIT Testing (1 year) 2006 Pneumococcal Vaccine 50+ (1 of 1 - PCV) 2011 ZOSTER VACCINE (1 of 2) 2011 ANNUAL PHYSICAL 05/24/2016 HEPATITIS C SCREENING 05/24/2016 COVID-19 Vaccine ( - season) 2023 INFLUENZA VACCINE 11/12/2024 Insurance [employer] Care Teams Dietist Relationship Specialty Start Date End Date Steven Fuller MD [address] [place] [address] PCP - General 10/06/14
[2024-09-11 09:53] VITALS: BP 137/89; PULSE 71; RESP 14; O2SAT 98; BMI 24.2
--- NOTE | 2024-09-11 10:11 | EXP.PAIN.SOA ---
[facility] Disclaimer: The information contained in this section may have been updated after the patient was seen, as this information can be updated by other users. Medical History Cervical cancer Surgery, elective COPD (chronic obstructive pulmonary disease) CAD (coronary artery disease) HLD (hyperlipidemia) Neuropathy Spondylosis of lumbar spine Surgical History History of section History of tonsillectomy History of right heart catheterization (RHC) History of hysterectomy Family History Other Family history of cancer Family history of diabetes mellitus type II Family history of myocardial infarction Family history of stroke Social History Smoking Status: Current every day smoker tobacco type: cigarettes packs per day: 1 second hand exposure: Yes alcohol intake: never substance use type: marijuana current occupational status: other Travel in the last 8 weeks?: None household members: significant other housing: house current occupation: [employer] caffeine: Yes PM Subjective & Objective Subjective Subjective:: Patient is a pleasant 64-year-old female who presents today for follow-up. She rates her pain today a 0 out of 10. She does state overall her back and leg symptoms have been doing better from her last appointment. Patient did have bilateral SI injections that did provide 90 to 100% relief. Patient does states she has recently had a colonoscopy and that did go well. Patient is currently managed with gabapentin 300 mg 4 times a day and Flexeril 100 mg 3 times a day. She denies any side effects as well as the lidocaine patches and compounded cream. Her Elmo has been reviewed and is appropriate. Review of Systems: General: No recent weight changes, no fever, no sleep disturbances Respiratory: No cough, no shortness of air, no recurring pulmonary infections Cardiovascular/peripheral vascular: No chest pain, no palpitations, no edema, no shortness of breath Gastrointestinal: No new onset incontinence, normal bowel movements reported Genitourinary: No new onset incontinence Musculoskeletal: Low back pain Psychiatric: [Normal mood/affect] Neurological: [Denies weakness in extremities], [denies balance issues] Pain at rest (0-10 scale): 0 Objective Objective:: Physical Exam: General: Alert and oriented x3, no acute distress, pleasant and cooperative Lungs: Respirations even and unlabored, symmetrical chest expansion Eyes: PERRL Musculoskeletal: Flexion and extension of lumbar [spine] within normal limits Neurological: Speech clear, no gross sensory deficit Has patient had previous pain injection?: No Conservative treatment options previously tried: Home exercise plan Length of treatment: Longer than 12 weeks Meds Home Medications and Allergies Home Medications ?Medication ?Instructions ?Recorded ?Confirmed ?Type aspirin-caffeine 845 mg-65 mg oral 1 each PO Q4HP PRN MIGRAINES 08/09/21 09/11/24 History powder packet (BC Pain Relief) mupirocin 2 % topical ointment 1 applic topical BID . 09/22/22 09/11/24 History cholecalciferol (vitamin D3) 50 50 mcg PO DAILY #30 caps 06/16/24 09/11/24 Rx mcg (2,000 unit) capsule atorvastatin 20 mg tablet 20 mg PO DAILY #90 tabs 06/25/24 09/11/24 Rx cyclobenzaprine 10 mg tablet 10 mg PO TID #90 tabs 07/31/24 09/11/24 Rx gabapentin 300 mg capsule 300 mg PO QID #120 caps 07/31/24 09/11/24 Rx lidocaine 5 % topical patch 1 patch topical DAILY #30 ea 07/31/24 09/11/24 Rx sodium,potassium,mag sulfates 17.5 See Rx Instructions PO .COMPLEX 08/26/24 09/11/24 Rx gram-3.13 gram-1.6 gram oral soln #354 mL (Suprep Bowel Prep Kit) peg 3350-electrolytes 236 240 ml PO Q10M colonscopy #4,000 mL 08/29/24 09/11/24 Rx gram-22.74 gram-6.74 gram-5.86 gram solution (Golytely) trazodone 50 mg tablet 50 mg PO HS #30 tabs 09/05/24 09/11/24 Rx New Prescriptions to Start Prescriptions: Allergies Allergy/AdvReac Type Severity Reaction Status Date / Time No Known Allergies Allergy Verified 09/08/24 13:10 Assessment and Plan *Assessment and plan (1) Bilateral sacroiliitis: Status: Acute Category: Medical Code(s): M46.1 - Sacroiliitis, not elsewhere classified Plan Patient continues to do well and does not require any additional injection therapy intervention at this time. Patient has also been recently given a 3-month supply of her medications. Patient will return to clinic mid October for her next medication refill and follow-up. Patient agrees with this plan of care. Patient has been instructed to contact the clinic with any concerns before the next appointment. Dr. Benitez has reviewed this note and agrees with this plan of care. This note was dictated using voice recognition software and make contain errors or omissions. All injections are used with Lidocaine, Bupivacaine and dexamethasone. Occasionally urine drug screen is needed to verify patient's compliance with our office pain contract. This is ordered based off specific treatments related to chronic pain with the potential to abuse certain medications.
== END 2024-09-11 23:59 | disposition home or self-care (01) ==
LOC: SC.PAIN 09:20
PROVIDERS: PCP Nurse Practitioner Family; Visit Provider Nurse Practitioner Family
DX: M46.1 Sacroiliitis, not elsewhere classified (principal); Z79.899 Other long term (current) drug therapy
CPT/HCPCS: 99212; G0463

== ENCOUNTER 2024-10-19 17:35 | Emergency (ER) | payer MEDICAID, SELFPAY ==
[2024-10-19 18:13] VITALS: BP 147/95; PULSE 83; RESP 18; TEMP 36.8; O2SAT 97; BMI 24.2
[2024-10-19 18:15] VITALS: BP 147/95; PULSE 88; O2SAT 97
--- OUTSIDE RECORDS SUMMARY | 2024-10-19 18:16 | XMS_ITS | Clinical Summary ---
Author Organization Healthcare Address [address] [place] [address] Care Team Providers Care Exercise Physiologist Name Role Phone Carmen Mandel Primary Care Provider [phone] Family History Medical History Relation Name Comments [...] 2011 UKY-Zoster Vaccines (1 of 2) 2011 [id number] Vaccine (1 - 20 24-25 season) 2024 UKY-Influenza Vaccine (#1) 2024 UKY-RSV Vaccine: 60+ [...] patient's age to complete this topic Insurance [facility] Care Teams Exercise Physiologist Relationship Specialty Start Date End Date Carmen Mandel PA [address] [place] [address] PCP - General 06/25/20
--- OUTSIDE RECORDS SUMMARY | 2024-10-19 18:16 | XMS_ITS | Clinical Summary ---
Author Organization [facility] Address [address] [place] [address] Care Team Providers Care Horticultural Agent Name Role Phone Steven Fuller MD Primary Care Provider [phone] Allergies Active Allergy Reactions Criticality Noted Date [...] artery disease of n ative artery of [place] heart with stable angina pectoris 05/24/2016 Tobacco [...] HEPATITIS C SCREENING 05/24/2016 COVID-19 Vaccine ( season) 2024 INFLUENZA VACCINE 11/12/2024 Insurance [employer] Care Teams Horticultural Agent Relationship Specialty Start Date End Date Steven Fuller MD [address] [place] [address] PCP - General 10/06/14
--- NOTE | 2024-10-19 18:26 | ED_ITS ---
<Statement entered by Gala Souza DO - 10/19/24 23:25> I was consulted by the AUDRA, and we discussed the complexity of problems being addressed. I approve the treatment and management plan for this patient's care in the emergency department, thus performing a substantial portion of the medical decision making. Gala Souza DO Discharge Plan Disposition Patient Disposition: Home, Self-Care Condition: Good Prescriptions Prescriptions: No Action BC Pain Relief 845-65 mg powder in packet 1 each PO Q4HP PRN (Reason: MIGRAINES) atorvastatin 20 mg tablet 20 mg PO DAILY Qty: 90 3RF prednisone 20 mg tablet 20 mg PO BID 5 Days Qty: 10 0RF naproxen 500 mg tablet 500 mg PO BID Qty: 30 0RF cholecalciferol (vitamin D3) 50 mcg (2,000 unit) capsule 50 mcg PO DAILY Qty: 30 4RF peg 3350-electrolytes [Golytely] 236-22.74-6.74 -5.86 gram recon soln 240 ml PO Q10M Qty: 4000 0RF Rx Instructions: at 6pm day before surgery take first dose. After mixing prep as directed, drink half of the gallon by drinking 8 ounces, or 1 cup, every 15 mins until half is remaining. refrigerate the remaining and continue clear liquids till midnight. 5-6 hours before exam, take the second dosage, 8oz every 15 mins till gone. trazodone 50 mg tablet 50 mg PO HS Qty: 30 2RF permethrin [Elimite] 5 % cream 1 applic TOPICAL Q14D Qty: 60 1RF Rx Instructions: apply to entire body with exception of face; wash off after 12 hours lidocaine 5 % adhesive patch,medicated 1 patch topical DAILY Qty: 30 2RF Rx Instructions: leave on most painful area for up to 12 hrs cyclobenzaprine 10 mg tablet 10 mg PO TID Qty: 90 2RF gabapentin 300 mg capsule 300 mg PO QID Qty: 120 2RF mupirocin 2 % ointment 1 applic topical BID Referrals Follow up/Referrals: Hilario Kaur APRN [Primary Care Provider, Family Practice] - See instructions Activity Restrictions/Add. Instructions Additional Instructions/Restrictions: No sign of a bacterial infection. Likely viral. Viruses can take 7-14 days to run their course. Nasal saline and bulb syringe or nose Katie to remove nasal drainage to help with nasal congestion. Hard to eat, drink, sleep with nasal congestion so important to keep this cleaned out. Monitor temp. Tylenol or Motrin as needed for pain or fever Encourage fluids, water, Gatorade, Powerade, Pedialyte if infant/toddler/child Warm salt water gargles Warm fluids Sore throat lozenges Sleep elevated Humidifier/vaporizer Follow-up immediately for new or worsening symptoms or no noticeable improvement over the next 48-72 hours. Clinical Impressions Clinical Impression: Upper respiratory infection, viral Instructions Patient Instructions: DI for Viral Upper Respiratory Infection -- Adult Print Language Print Language: Czech Discharge ED Provider: Gala Souza Adult HPI <Vera Quinones ([facility]), DIRECTOR OF PUBLIC RELATIONS - Last Filed: 10/19/24 19:00> General Chief complaint: Headache Stated complaint: congestion,sore throat,headache Time Seen by Provider: 10/19/24 18:15 Mode of Arrival: Ambulatory Source of Information: Patient and Significant Other Description of Symptoms (Recalled from ER Triage Doc. by RN): Patient presents to ED for sinus congestion, sore throat, and headache that started this morning at 0430. Denies fever or chills. History of Present Illness HPI narrative: 64-year-old female presents for clear sinus congestion, sore throat, and headache that started at 430 AM. Patient denies fever or chills. Patient states she is on prednisone and naproxen for her back hurting. Related Data Home Medications ?Medication ?Instructions ?Recorded ?Confirmed aspirin-caffeine 845 mg-65 mg oral 1 each PO Q4HP PRN MIGRAINES 08/09/21 10/14/24 powder packet (BC Pain Relief) mupirocin 2 % topical ointment 1 applic topical BID . 09/22/22 10/14/24 Previous Rx's ?Medication ?Instructions ?Recorded cholecalciferol (vitamin D3) 50 50 mcg PO DAILY #30 ca ps 06/16/24 mcg (2,000 unit) capsule atorvastatin 20 mg tablet 20 mg PO DAILY #90 tabs 06/12 06/06 cyclobenzaprine 10 mg tablet 10 mg PO TID #90 tabs gabapentin 300 mg capsule 300 mg PO QID #120 caps 07/13 11/06 lidocaine 5 % topical patch 1 patch topical DAILY #30 ea 07/31/24 peg 3350-electrolytes 236 240 ml PO Q10M colonscopy #4 ,000 mL 08/29/24 gram-22.74 gram-6.74 gram-5.86 gram solution (Golytely) trazodone 50 mg tablet 50 mg PO HS #30 tabs 09/05/2 5 permethrin 5 % topical cream 1 applic topical Q14D 2 d oses #60 09/29/24 (Elimite) grams naproxen 500 mg tablet 500 mg PO BID #30 tabs 10/14 prednisone 20 mg tablet 20 mg PO BID 5 days #10 tabs 10/14/24 Allergies Allergy/AdvReac Type Severity Reaction Status Date / Time No Known Allergies Allergy Verified 10/14/24 14:03 PFS <Vera Quinones ([facility]), DIRECTOR OF PUBLIC RELATIONS - Last Filed: 10/19/24 19:00> PFS Disclaimer: The information contained in this section may have been updated after the patient was seen, as this information can be updated by other users. Medical History , DIRECTOR OF PUBLIC RELATIONS) Cervical cancer Surgery, elective COPD (chronic obstructive pulmonary disease) CAD (coronary artery disease) HLD (hyperlipidemia) Neuropathy Spondylosis of lumbar spine Surgical History , DIRECTOR OF PUBLIC RELATIONS) History of section History of tonsillectomy History of right heart catheterization (RHC) History of hysterectomy Family History , DIRECTOR OF PUBLIC RELATIONS) Family history of stroke Family history of cancer Family history of diabetes mellitus type II Family history of myocardial infarction Social History , DIRECTOR OF PUBLIC RELATIONS) Smoking Status: Current every day smoker tobacco type: cigarettes packs per day: 1 second hand exposure: Yes alcohol intake: never substance use type: marijuana current occupational status: other Travel in the last 8 weeks?: None household members: significant other housing: house current occupation: [employer] caffeine: Yes Have you lived/traveled outside [place] in past 30 days?: No Contact w/someone who lives/traveled outside US past 30 days?: No Exposure to someone with infectious disease in past 14 days?: No Do you have a fever (greater than 100.4 F or 38 C)?: No Have you tested positive for COVID-19?: No Exposed to someone with COVID-19 in past 14 days?: No Do you have a sore throat?: No Do you have a cough?: No Do you have any weakness?: No Do you have any diarrhea?: No Are you experiencing any unusual bleeding?: No Do you have any muscle aches/pain?: No Do you have any abdominal pain?: No Are you experiencing loss of taste or smell?: No Other Medical History Have you received the Flu Vaccine for this season: Yes Have you received the Pneumonia Vaccine: No <Vera Quinones ([facility]), DIRECTOR OF PUBLIC RELATIONS - Last Filed: 10/19/24 19:00> ROS Obtained: Yes All systems reviewed & no additional complaints except as documented Constitutional Constitutional: Reports system reviewed and no additional complaints, except as documented Eyes Eyes: Reports system reviewed and no additional complaints, except as documented ENT Ears, Nose, Mouth, and Throat: Reports system reviewed and no additional complaints, except as documented, Reports as per HPI, Reports nasal congestion, Reports nasal discharge, Reports post nasal drip and Reports sore throat Neurologic Neurologic: Reports system reviewed and no additional complaints, except as documented Physical Exam <Vera Quinones ([facility]), DIRECTOR OF PUBLIC RELATIONS - Last Filed: 10/19/24 19:00> General General appearance: alert and in no apparent distress Head Head exam: atraumatic Eye Eye exam: Present normal appearance ENT ENT exam: Present normal exam, normal oropharynx, mucous membranes moist and TM's normal bilaterally Respiratory Respiratory exam: Present normal lung sounds bilaterally Cardiovascular Cardiovascular exam: Present regular rate and normal rhythm Neurological Exam Neurological exam: Present alert and oriented X3 Skin Skin exam: Present warm and intact Medical Decision Making <Vera Quinones ([facility]), DIRECTOR OF PUBLIC RELATIONS - Last Filed: 10/19/24 19:00> Medical Records Medical records reviewed: Yes I reviewed the patient's medical records. Screening: Per USPSTF and CDC recommendations, given the prevalence of disease in our region, it is our hospital?s policy to screen for HIV and viral Hepatitis for all patients aged 18 and over and those with ongoing risk factors. Elmo Inquiry Pt receiving controlled substance: No Vital Signs: 10/19/24 18:13 10/19/24 18:13 10/19/24 18:15 Temperature 98.2 F 98.2 F Temperature Source Oral Pulse Rate 83 88 Pulse Rate [Right] 83 Respiratory Rate 18 18 Blood Pressure 147/95 H 147/95 H Blood Pressure [Right Arm] 147/95 H Blood Pressure Mean [Right Arm] 112 Blood Pressure Source Blood Pressure Position 02 Sat by Pulse Oximetry 97 97 97 Oxygen Delivery Method 10/19/24 18:30 10/19/24 19:13 Temperature 98.4 F Temperature Source Oral Pulse Rate 81 60 Pulse Rate [Right] Respiratory Rate 18 Blood Pressure 137/83 143/83 H Blood Pressure [Right Arm] Blood Pressure Mean [Right Arm] Blood Pressure Source Automatic Cuff Blood Pressure Position Sitting 02 Sat by Pulse Oximetry 97 Oxygen Delivery Method Room Air Lab Data Lab results reviewed: Yes I reviewed the patient's lab results. Lab Results 10/19/24 18:18: SARS-CoV-2 (PCR) Not detected, Influenza A Untype (PCR) Not detected, Influenza Type B (PCR) Not detected 10/19/24 18:20: Group A Strep Rapid Negative Orders (Tests/Meds): ORDERS Category Date Time Status Rapid PCR Covid and Flu A/B Stat Lab 10/19/24 18:18 Completed Strep Scrn Group A (Rapid) Stat Lab 10/19/24 18:20 Completed Strep Screen Confirmation Stat Micro 10/19/24 18:20 Received Medical Decision Narrative: In summary patient is a 64-year-old female who presents to the emergency department for evaluation of sinus congestion, sore throat, and headache. Patient is hemodynamically stable upon arrival, afebrile. Unremarkable physical exam. Differential diagnosis includes sinusitis, COVID, upper respiratory infection, flu. Initial workup will be conducted with COVID/flu swab, strep swab. Initial inventions include p.o. challenge. Initial workup reviewed by md COVID/strep/flu swabs all negative. Upon repeat evaluation patient sitting comfortably. Given this patient is appropriate for discharge this time will discharge home continue prednisone. <Gala Souza, DO - Last Filed: 10/19/24 23:25> Vital Signs: 10/19/24 18:13 10/19/24 18:13 10/19/24 18:15 Temperature 98.2 F 98.2 F Temperature Source Oral Pulse Rate 83 88 Pulse Rate [Right] 83 Respiratory Rate 18 18 Blood Pressure 147/95 H 147/95 H Blood Pressure [Right Arm] 147/95 H Blood Pressure Mean [Right Arm] 112 Blood Pressure Source Blood Pressure Position 02 Sat by Pulse Oximetry 97 97 97 Oxygen Delivery Method 10/19/24 18:30 10/19/24 19:13 Temperature 98.4 F Temperature Source Oral Pulse Rate 81 60 Pulse Rate [Right] Respiratory Rate 18 Blood Pressure 137/83 143/83 H Blood Pressure [Right Arm] Blood Pressure Mean [Right Arm] Blood Pressure Source Automatic Cuff Blood Pressure Position Sitting 02 Sat by Pulse Oximetry 97 Oxygen Delivery Method Room Air Lab Data Lab Results 10/19/24 18:18: SARS-CoV-2 (PCR) Not detected, Influenza A Untype (PCR) Not detected, Influenza Type B (PCR) Not detected 10/19/24 18:20: Group A Strep Rapid Negative Orders (Tests/Meds): ORDERS Category Date Time Status Rapid PCR Covid and Flu A/B Stat Lab 10/19/24 18:18 Completed Strep Scrn Group A (Rapid) Stat Lab 10/19/24 18:20 Completed Strep Screen Confirmation Stat Micro 10/19/24 18:20 Received Medical Decision Narrative: In summary patient is a 64-year-old female who presents to the emergency department for evaluation of sinus congestion, sore throat, and headache. Patient is hemodynamically stable upon arrival, afebrile. Unremarkable physical exam. Differential diagnosis includes sinusitis, COVID, upper respiratory infection, flu. Initial workup will be conducted with COVID/flu swab, strep swab. Initial inventions include p.o. challenge. Initial workup reviewed by md COVID/strep/flu swabs all negative. Upon repeat evaluation patient sitting comfortably. Given this patient is appropriate for discharge this time will discharge home continue prednisone. Critical Care <Vera Quinones ([facility]), DIRECTOR OF PUBLIC RELATIONS - Last Filed: 10/19/24 19:00> Critical Care Time Critical Care Time: No
[2024-10-19 18:29] LABS: Coronavirus 19, PCR Not Detected (NotDetected); Influenza A, PCR Not Detected (NotDetected); Influenza B, PCR Not Detected (NotDetected)
[2024-10-19 18:30] VITALS: BP 137/83; PULSE 81; O2SAT 97
[2024-10-19 18:36] LABS: Strep Scrn Group A (Rapid) Negative (Negative)
[2024-10-19 19:13] VITALS: BP 143/83; PULSE 60; RESP 18; TEMP 36.9; O2SAT 98
== END 2024-10-19 19:14 | disposition home or self-care (01) ==
PROVIDERS: Nurse Practitioner Family; Emergency Provider Student in an Organized Health Care Education/Training Program; PCP Nurse Practitioner Family
DX: J06.9 Acute upper respiratory infection, unspecified (principal); R51.9 Headache, unspecified; R07.0 Pain in throat; R09.81 Nasal congestion; F17.210 Nicotine dependence, cigarettes, uncomplicated
CPT/HCPCS: 87430; 87636; 99284

== ENCOUNTER 2024-11-06 11:00 | Outpatient (RCR) | payer MEDICAID, SELFPAY ==
--- NOTE | 2024-11-04 14:51 | HMH.PTOPEV ---
PT Evaluation Rehab PT Outpatient Evaluation Start: 11/04/24 13:43 Freq: Status: Active Protocol: Document 11/04/24 13:43 SIMON (Rec: 11/04/24 14:49 SIMON [id number]) E-signed By Terri Santos, PT Outpatient Therapy Subjective History Subjective History Pt is a 64 y/o female who reports chronic low back pain with gradual worsening overtime. Pt denies recent trauma or injury. Pt reports left-sided low back pain with intermittent radiating pain into the left leg to the lateral aspect of her knee, denies more distal symptoms. Pt reports localized numbness of the left posterior hip that is intermittent in nature. Pt denies noted weakness or buckling of the LLE. Pt denies b/b dysfunction. Pt reports pain is aggravated by prolonged standing and walking. Pt states she has been seeing pain management for awhile for low back pain and has been treated with multiple injections which she states completely relieves symptoms for 1 year. Pt reports her next injection is scheduled on 12/09/24. Pt denies having recent imaging of her lumbar spine. Per pt reports, most recent lumbar spine MRI was in 2019 with impression of Abnormal MRI of the lumbar spine with multilevel lumbar spondylosis with degenerative disc disease, bulging disc, facet ligamentum hypertrophy with multilevel areas of lateral recess and foraminal narrowing. There is a right paracentral disc herniation at T11-T12 and there is grade 2 spondylolisthesis of L5 on S1 which appears spondylitic. Please see above for detailed description at each level. Medical History: Emphysema New diagnosis of No cancer in past 12 months? Chief Complaint Pain Symptom Type Ache,Sharp,Dull,Burning Symptoms Relieved By Heat,OTC Meds Symptoms Aggravated Standing,Physical Activity,Walking,Lifting By Current Functional Lifting,Housework,Standing,Walking Limitations Symptom Description Intermittent Level of pain today 0 (0-10) Pain scale - at its 0 best (0-10) Pain scale - at its 7 worst (0-10) Lumbopelvic Eval Posture Lumbar Spine Posture Decreased Lordosis Standing Position Assistive device Assistive Devices None / NA Gait Observation General Gait Pattern Antalgic Gait,Decrease Weight Bear (L) Observation Palapation tenderness bilateral lumbar spinal Yes: L4-5, L5-S1 tenderness paraspinal Yes: L tenderness buttock tenderness Yes: glute med, min, piriformis mm Lumbar/Sacral Tenderness Palpation Findings Lumbar/Sacral 2/4 TTP Palpation Overall Comment Accessory Movement L-spine Vertebrae Central P/A [place] Accessory Movements that Elicit Symptoms L4 bilateral L5 bilateral S1 bilateral Range of Motion Lumbar Spine Active 90 Flexion Range of Motion (degrees) Lumbar Spine Active 10 Extension Range of Motion (degrees) Left Lumbar Spine 15 Lateral Flexion Active Range of Motion (degrees) Right Lumbar Spine 15 Lateral Flexion Active Range of Motion (degrees) Manual Muscle Test Bilateral Knee Extension 4+ Good+ Strength Grade Knee Flexion 4+ Good+ Strength Grade Hip Flexion Strength 4- Good- Grade Hip Abduction 4 Good Strength Grade Hip Adduction 4- Good- Strength Grade Hip Extension 4- Good- Strength Grade Ankle Dorsiflexion 5 Normal Strength Grade DTR Rt Patellar 2+ Lt Patellar 2+ Rt Gastroc/Soleus 2+ Lt Gastroc/Soleus 2+ Altered Sensation Bilateral Comment equal and intact to light touch sensation bilaterally Oswestry Index Section 1 Pain Intensity The pain comes and goes and is severe Section 2 Personal Care ( my way of washing or dressing even though it causes Washing,Dresing) some pain Section 3 Lifting lifting heavy weights off the floor, but I can manage if they are Section 4 Walking I cannot walk at all without increasing pain Section 5 Sitting I can sit in my favorite chair for as long as I like Section 6 Standing I cannot stand more than 1 hour without increasing pain Section 7 Sleeping Because of my pain, my normal night's sleep is less than 6 hours sleep Section 8 Social Life Pain has restricted my social life and I do not go out often Section 9 Traveling I get extra pain while traveling, but it does not compel me to seek al Section 10 Changing Degreee of My pain is gradually getting worse Pain Score and Risk Level Oswestry Score 27 Oswestry Risk Level Severe Disability Outpatient Therapy Assessment Impairments Problems/ Palpation Tenderness,Impaired Range of Motion,Impaired Impairmments Strength,Impaired Walking,Impaired Standing,Impaired Sitting,Impaired Household Care,Subjective C/O Pain, Impaired Self Care/Self Management Prognosis Rehab Potential Good Clinical Impression Consistent with Yes Diagnosis PT Patient Goals PT Patient Goals PT Short Term 3 weeks: Patient Goals 1. Verbalize compliance with HEP to assist with overall progress. 2. Improve GIO score to 22 or less to improve overall QOL/function. 3. Improve pain at worst to 5/10 to improve overall QOL . PT Residential Patient 6 weeks: Goals 1. Improve GIO score to 17 or less to improve overall QOL/function. 2. Improve pain at worst to 3/10 to improve overall QOL . 3. Improve LLE MMT to 4-4+/5 grossly to assist with function. 4. Demonstrate non-antalgic gait mechanics to decrease fall risk. Outpatient Therapy Plan of Care Treatment Plan May Include Therapeutic Exercise Yes Including Home Exercise Program Manual Therapy Yes Techniques Neuromuscular Re- Yes education Therapeutic Yes Activities to Return to Previous Functional/Work Level Gait Training Yes ADL/Self Care Yes Education Mechanical Traction Yes Dry Needling Yes Thermal Modalities Yes Electrical Yes Stimulation Ultrasound/ Yes Phonophoresis Iontophoresis Yes Massage Yes Group Therapy for Yes Medicare Eval/Re-Eval Yes Aquatic Therapy Yes Frequency Times per week 2 Duration Number of Weeks 4-6 Addendums This patient is a No candidate for social or vocational rehab ? Patient/Guardian Yes verbally acknowledges understanding of treatment program and consents to further treatment? Patient/Guardian Yes verbally acknowledges understanding of diagnosis, prognosis and goals for treatment? Eval Complexity PT Charges 49684 - Low Complexity Shoulder/Elbow Eval Shoulder Objective Measurements Elbow Objective Measurements PHYSICIAN CERTIFICATION: I certify the specified therapy services for Ainsley Cherry are required, authorized, and reviewed every 30 days.
== END 2024-11-06 23:59 | disposition home or self-care (01) ==
LOC: PT 11:00
PROVIDERS: Visit Provider Nurse Practitioner Family
DX: M54.50 Low back pain, unspecified (principal)
CPT/HCPCS: 97110; 97161; 97530

== ENCOUNTER 2024-12-09 10:53 | Day surgery (SDC) | payer MEDICAID, SELFPAY ==
[2024-12-09 11:03] VITALS: BP 103/65; PULSE 66; RESP 16; O2SAT 98; BMI 24.2
[2024-12-09] MEDS: BUPIVACAINE 0.25% 10ML INJ 25 MG IJ (11:32)
[2024-12-09] MEDS: LIDOCAINE 1% 5ML PF VIAL 5 ML (11:32)
[2024-12-09] MEDS: DEXAMETHASONE 10MG/ML 1ML VIAL 10 MG (11:32)
[2024-12-09 11:35] VITALS: BP 134/76; PULSE 87; RESP 18; O2SAT 98
--- NOTE | 2024-12-09 11:35 | EXP.PAIN.PRO ---
Procedure Date: 12/09/24 Time: 11:30 Anesthesiologist:: Ovi Rodriguez CRNA Complications:: None Pre-procedure Diagnosis:: Left sacroiliitis Post-procedure Diagnosis:: Same Indications for Procedure:: Patient is a very pleasant 64-year-old female who comes to clinic today for a left sacroiliac joint injection cortisone local anesthetic. Patient describes left low lumbar back pain as well as left posterior hip pain is constant, dull, aching. She reports difficulty transitioning from sitting to standing. Difficulty with ambulation due to the left posterior hip pain. She rates her pain 7/10. Procedure Details:: Procedure: Left sacroiliac injection under fluoroscopy Informed consent was obtained and the risk and benefits of the procedure were explained to the patient.~ The patient was taken to the procedure room and noninvasive monitors were placed including noninvasive blood pressure cuff and pulse oximeter.~ The patient was placed prone on the procedure table.~ The~ left hip was cleansed using Betadine as a cleansing solution.~ C-arm fluorosocpy was used to view the left SI joint.~ The skin and subcutaneous tissues were anesthetized using Lidocaine 1.5% and a 25-gauge needle.~ After this, a 22-gauge spinal needle was inserted under fluoroscopic guidance into the inferior aspect of the left SI joint.~ Omnipaque dye was injected and a good spread was seen throughout the joint.~ After this, approximately 5 mL of bupivacaine 0.25% and dexamethasone 10 mg was incrementally injected into the sacroiliac joint.~ The patient tolerated the procedure well with no complications.~ The patient was observed in the Pain Clinic for a period of 30-45 minutes, then discharged home neurologically intact.~ Plan and Disposition:: Patient was discharged without incident.
[2024-12-09 11:38] VITALS: BP 128/73; PULSE 88; RESP 18; O2SAT 95
[2024-12-09 11:39] VITALS: BP 134/76; PULSE 87; RESP 18; O2SAT 98
== END 2024-12-09 11:38 | disposition home or self-care (01) ==
PROVIDERS: PCP Nurse Practitioner Family; Visit Provider Nurse Anesthetist, Certified Registered
DX: M46.1 Sacroiliitis, not elsewhere classified (principal); I25.10 Atherosclerotic heart disease of native coronary artery without angina pectoris; E78.5 Hyperlipidemia, unspecified; J43.9 Emphysema, unspecified; F17.210 Nicotine dependence, cigarettes, uncomplicated; Z85.41 Personal history of malignant neoplasm of cervix uteri; Z79.82 Long term (current) use of aspirin; Z79.51 Long term (current) use of inhaled steroids; Z79.899 Other long term (current) drug therapy
CPT/HCPCS: G0260; J0665; J1100; J2003